=== PATIENT | female | born 1945 | race Caucasian/White ===

== ENCOUNTER → 2018-03-03 11:35 | Outpatient (CLI) | payer OTHER, SELFPAY ==
--- NOTE | 2018-03-03 12:09 | DI.CT.S_ITS ---
PROCEDURE: CT CHEST W CON INDICATIONS: Left neck and supraclavicular swelling with history of br ca TECHNIQUE: After the administration of intravenous contrast, 5 mm thick sections acquired from the pulmonary apices to the posterior costophrenic angles. 7 mm thick coronal and sagittal MIP reformats were acquired. For radiation dose reduction, the following was used: automated exposure control, adjustment of mA and/or kV according to patient size. COMPARISON: None. FINDINGS: Image quality: Excellent. Lungs and pleura: No acute consolidation. 3 mm groundglass nodules in the left upper lobe on image 20 may be postinflammatory. There is a 3 mm nodule seen in the subpleural right middle lobe which is indeterminate in the absence of prior studies. Posterior right lower lobe blebs are seen.. No pleural effusions or pneumothorax. Central and peripheral airways are patent and normal in caliber. Mediastinum: Heart size is normal. There are coronary artery calcifications. No pericardial effusion. No mediastinal or hilar adenopathy by size criteria. Thoracic aorta and central pulmonary arteries are normal in size. Esophagus is normal in caliber. No hiatal hernia. Bones and chest wall: No suspicious bony lesions. No vertebral body compression fractures. No axillary or supraclavicular adenopathy by size criteria. Possible sub-5 mm hypodense nodule in the right lobe the thyroid image 21 series 2 which could be further evaluated with ultrasound as clinically warranted. Abdomen: Hepatic steatosis. Small hiatal hernia. IMPRESSION: No lymphadenopathy or specific visualized etiology for clinically reported left-sided neck swelling. Hepatic steatosis. Small hiatal hernia. 3 mm nodule in the subpleural right middle lobe. Recommend initial followup in 6 months to exclude early metastatic disease. Possible sub-5 mm nodule involving the right lobe of the thyroid. Further evaluation with ultrasound could be performed as clinically warranted. Dictated by: Nickolas Suazo M.D. on 03/03/2018 at 14:31 Approved by: Nickolas Suazo M.D. on 03/03/2018 at 14:39
== END ==
PROVIDERS: Visit Provider Surgery
DX: R22.1 Localized swelling, mass and lump, neck (principal); Z85.3 Personal history of malignant neoplasm of breast
CPT/HCPCS: 71260; Q9967

== ENCOUNTER → 2018-10-17 12:32 | Outpatient (CLI) | payer OTHER, SELFPAY ==
--- NOTE | 2018-10-17 13:42 | DI.CT.S_ITS ---
PROCEDURE: CT CHEST W CON INDICATIONS: 6 month f/u TECHNIQUE: After the administration of intravenous contrast, 5 mm thick sections acquired from the pulmonary apices to the posterior costophrenic angles. 7 mm thick coronal and sagittal MIP reformats were acquired. For radiation dose reduction, the following was used: automated exposure control, adjustment of mA and/or kV according to patient size. COMPARISON: [facility], CT, CT CHEST W CON, 03/03/2018, 12:10. FINDINGS: Image quality: Excellent. Lungs and pleura: No acute air space opacities. A 4 mm calcified granuloma is present within the right lower lobe (series 2, image 122). A 4 mm pulmonary nodule is present within the right middle lobe unchanged in the study dated 03/03/18 (series 2, image 161). A 4 mm pulmonary nodule is present at the left apex unchanged from the study dated 03/03/18 (series 2, image 30). A 7 mm ground glass radiopacity is unchanged within the left upper lobe (series 2, image 59). No pleural effusions or pneumothorax. Central and peripheral airways are patent and normal in caliber. Mediastinum: Heart size is normal. No pericardial effusion. No mediastinal or hilar adenopathy by size criteria. Thoracic aorta and central pulmonary arteries are normal in size. Scattered atheromatous calcifications are present within the aortic arch. Esophagus is normal in caliber. There is a moderate sized hiatal hernia. Bones and chest wall: Patient is status post bilateral mastectomy. Bilateral low density fluid collections are present within the anterior chest wall, greater on the left than on the right. Some fat stranding surrounds the left chest wall fluid collection suggesting inflammatory changes. No suspicious bony lesions. No vertebral body compression fractures. No axillary or supraclavicular adenopathy by size criteria. Thyroid gland is unremarkable. Abdomen: The liver is diffusely hypodense suggesting hepatic steatosis. Calcified gallstones are partially visualized within the gallbladder fundus. Visualized upper abdominal solid organs appear normal. Upper abdominal bowel loops are otherwise normal in caliber. IMPRESSION: 1. Multiple pulmonary nodules measuring up to 5 mm in diameter. These are unchanged when compared with the study dated 03/03/18. Please see followup guidelines below. Followup in 6-12 months recommended. 2. 7 mm left upper lobe ground glass radiopacity unchanged from the prior study. Please see followup guidelines below. Annual followup recommended. 3. Bilateral anterior chest wall fluid collections suggesting postoperative seromas. Of note, inflammatory changes are present around the left seroma. Infected seroma cannot be excluded. Please correlate clinically. The fluid may be amenable to ultrasound-guided aspiration if fluid culture is warranted to exclude infection. 4. Hepatic steatosis. Fleischner Society criteria for SOLID lung nodule followup. Nodule size (mm)Low-risk patientHigh-risk patient?4No follow-up neededFollow-up at 12 mo; if no change, no further follow-up>[id number] CT at 12 mo; if no change, no further follow-up needed.Initial follow-up CT at 6-12 mo, then 18-24 mo if no change. >6-8Initial follow-up CT at 6-12 mo, then 18-24 mo if no change. Initial follow-up CT at 3-6 mo, then 9-12 mo and 24 mo if no change. >8Follow-up CT at 3, 9, 24 mo. Or PET and/or biopsy.Same as for low-risk pts. Fleischner Society criteria for SUB-SOLID lung nodule followup. Solitary pure ground-glass nodules5 mm or lessNo followup needed. >5 mm3 mo follow-up CT to confirm persistence. Then annual CT for 3 years. Part-solid nodules3 mo follow-up CT to confirm persistence. If persistent with solid component <5 mm, annual CT for at least 3 years. If solid component is 5 mm or more, biopsy or surgical resection. Consider PET-CT for lesions > 10 mm. Multiple sub-solid nodulesPure ground glass nodules [address] at 2 and 4 years. Pure ground glass nodules >5 mm without dominant lesion. [address] to confirm persistence, then annual followup CT for at least 3 years. Dominant nodule(s) with part-solid or solid component. [address] to confirm persistence. If persistent, consider biopsy or surgical resection, fredy if lesions have >5 mm solid component. Dictated by: Sophia Dodd M.D. on 10/17/2018 at 14:32 Approved by: Sophia Dodd M.D. on 10/17/2018 at 14:41
--- NOTE | 2018-10-17 13:42 | DI.CT.S_ITS ---
PROCEDURE: CT CHEST HIGH RESOLUTION INDICATIONS: lung nodules TECHNIQUE: Noncontrast 1.0 and 5.0 mm thick contiguous axial sections from the pulmonary apex to the posterior costophrenic angles, with 7 mm thick coronal and sagittal MIP reformats. 1 mm thick dynamic expiratory images acquired through the upper, mid, and lower lungs. 1.0 mm thick axial sections acquired from the flaca to the posterior costophrenic angles in the prone end-inspiration position. For radiation dose reduction, the following was used: automated exposure control, adjustment of mA and/or kV according to patient size. COMPARISON: [facility], CT, CT CHEST W CON, 03/03/2018, 12:10. [facility], CT, CT CHEST W CON, 10/17/2018, 13:46. FINDINGS: Image quality: Excellent. Lungs: Calcified granuloma is present at the mid chest level, right lower lobe, series 2 image 69. Noncalcified stable appearing pleural right middle lobe nodule is present near the junction of the lateral and medial segments seen on series 2 image 91. No new pulmonary nodule has developed. Pleura: No pleural effusions or pneumothorax. Mediastinum: Heart size is normal. No pericardial effusion. Thoracic aorta and central pulmonary arteries are normal in size. Esophagus is normal in caliber. Small to moderate hiatal hernia behind the heart. Bones and chest wall: No suspicious bony lesions. No vertebral body compression fractures. Abdomen: Visualized upper abdominal solid organs and bowel loops appear normal. IMPRESSION: Calcified granuloma right lower lobe, stable appearing 3 mm benign-appearing nodule lateral aspect of the right middle lobe. No new nodule found, no suspicion for primary or metastatic disease is present given these findings and no specific followup is recommended. Small to moderate-sized hiatal hernia behind the heart. Dictated by: Mack Ortiz M.D. on 10/17/2018 at 16:11 Approved by: Mack Ortiz M.D. on 10/17/2018 at 16:18
[2018-10-17 13:52] LABS: BUN Creatinine Ratio 12.9 (6-22); Blood Urea Nitrogen 9 mg/dL (7-17); Estimated Glomerular Filt Rate > 60.0 mL/min (>60)
== END ==
PROVIDERS: Family Provider Surgery; Visit Provider Surgery
DX: C50.919 Malignant neoplasm of unspecified site of unspecified female breast (principal); R91.8 Other nonspecific abnormal finding of lung field; M96.843 Postprocedural seroma of a musculoskeletal structure following other procedure; K76.0 Fatty (change of) liver, not elsewhere classified; K44.9 Diaphragmatic hernia without obstruction or gangrene
CPT/HCPCS: 36415; 71250; 71260; 82565; 84520; Q9967

== ENCOUNTER → 2019-04-26 12:04 | Outpatient (CLI) | payer OTHER, SELFPAY ==
--- NOTE | 2019-04-26 | DI.US.S_ITS ---
PROCEDURE: US ABDOMEN COMPLETE INDICATIONS: right upper quadrant pain right breast cancer TECHNIQUE: Real-time scanning was performed of the abdominal and retroperitoneal organs, with image documentation. COMPARISON: [facility], CT, CT CHEST HIGH RESOLUTION, 10/17/2018, 13:46. FINDINGS: Liver: Liver is diffusely increased in echogenicity. No focal hepatic abnormalities identified. Normal hepatic size. Gallbladder: Multiple gallstones present, several of which which may be nonmobile. No gallbladder wall thickening or pericholecystic fluid. Negative sonographic Reynolds sign. Biliary ducts: Intrahepatic bile ducts are non-dilated. Extrahepatic bile duct caliber measures 4.5 mm. Normal is 6-7 mm or less in diameter, or 10 mm or less post-cholecystectomy. Pancreas: Visualized portions of the pancreas are sonographically normal. Spleen: Spleen is normal in size and homogeneous in echotexture. Kidneys: Kidneys are normal in size and echotexture. Right kidney measures 11.6 cm long; left kidney measures 10.6 cm long. No hydronephrosis or nephrolithiasis. No solid masses. Aorta: Visualized aorta is normal in caliber at less than 3 cm. Iliacs: Proximal common iliac arteries are normal in caliber at less than 2.5 cm. IVC: Intrahepatic inferior vena cava is patent. Miscellaneous: No free abdominal fluid. IMPRESSION: 1. Increased hepatic echogenicity noted possibly related to hepatic steatosis but other sources of hepatocellular disease cannot be excluded. Recommend clinical correlation. 2. Cholelithiasis without acute cholecystitis. Dictated by: Aaron VIZCAINO Interpreted: Kandis Palomares MD on 04/26/2019 at 12:58 Approved by: Kandis Palomares MD, PhD on 04/26/2019 at 14:45
--- NOTE | 2019-04-26 13:04 | DI.CT.S_ITS ---
PROCEDURE: CT CHEST ABD PEL W CON INDICATIONS: right upper quadrant pain, right breast cancer TECHNIQUE: After the administration of oral and intravenous contrast, 5 mm thick sections acquired from the lung apices to the symphysis. 5 mm coronal and sagittal reformats were performed, with additional 7 mm coronal MIP reformats through the lungs. For radiation dose reduction, the following was used: automated exposure control, adjustment of mA and/or kV according to patient size. COMPARISON: [facility], CT, CT CHEST W CON, 03/03/2018, 12:10. [facility], CT, CT CHEST W CON, 10/17/2018, 13:46. FINDINGS: Image quality: Excellent. CHEST: Lungs and pleura: No acute airspace opacities. No pleural effusions or pneumothorax. Central and peripheral airways appear patent and normal in caliber. Mediastinum: Heart size is normal. No pericardial effusion. No mediastinal or hilar adenopathy by size criteria. Thoracic aorta and central pulmonary arteries are normal in size. Esophagus is normal in caliber. No hiatal hernia. Chest wall: No axillary or supraclavicular adenopathy by size criteria. Thyroid gland appears normal where well visualized. Please review of bone section below. ABDOMEN: Solid organs: Liver is normal in size and enhancement. Gallbladder is free of inflammation but contains multiple moderate sized peripherally calcified gallstones noted which appear obstructed.. Biliary system is non dilated. Pancreas enhances normally. Spleen is normal in size and enhancement. No adrenal nodules. Kidneys demonstrate normal size and enhancement, without hydronephrosis. Peritoneum and bowel: Bowel loops demonstrate normal wall thickness and caliber. No free fluid or air. Nodes and vessels: No retroperitoneal or mesenteric adenopathy by size criteria. Aorta and inferior vena cava are normal in size. Miscellaneous: No ventral hernias. Please review bone section below. PELVIS: Genitourinary: Bladder wall thickness is normal. Miscellaneous: No inguinal hernias or adenopathy. Bones: No acute or chronic vertebral body compression fractures. There is, however, relatively widespread osseous metastatic disease. At the left sternal border there is a 3.4 x 4.4 cm osteolytic mass seen on series 2 image 24. More inferiorly at the mid chest level a osteolytic lesion involves the pedicle and facet joint area and lamina of the vertebral body in this area measuring up to 1.6 x 1.8 cm with early epidural tumor invasion at the posterolateral right side of the spinal canal. This produces mild mass effect against the spinal canal and likely should be further assessed with MR scanning. A small 7 mm osteolytic lesion is seen at the posterior vertebral body on the right 2 segments more inferiorly, not previously present. This is seen on series 2 image 46. An osteolytic expansile lesion involves the medial rib just below this level, seen on series 2 image 52 a during up to 1.5 cm in maximal dimension. Just below this level involving the same region is a slightly more lateral right-sided osteolytic rib lesion measuring up to 1.2 cm in diameter, seen on series 2 image 56. More inferiorly at the lower thoracic level is a vertebral body marrow space osteolytic lesion measuring up to 1.4 cm with a second osteolytic lesion at the same level measuring up to 1.9 cm involving the left facet joint. These are seen on series 2 image 62. An additional subtle osteolytic lesions are present within a mid vertebral body not previous ously present, seen on series 2 image 78 not yet extending into the epidural space. A small osteolytic lesion involves the middle third of the left iliac bone seen on series 2 image 100 measuring up to 1.5 cm. IMPRESSION: 1. Extensive osseous metastatic disease as discussed above involving both the axial and appendicular skeleton. There is epidural tumor invasion at the mid thoracic spine level on the right, mild in severity. Additional spinal metastatic disease is present as noted. MR scanning for radiation therapy planning may be warranted. 2. Throughout the visualized chest abdomen and pelvis no visceral or soft tissue metastatic disease is found. 3. Peripherally calcified centrally lucent moderate size gallstones are present layering within the gallbladder lumen with air is no evidence of acute cholecystitis or biliary obstruction. However, these calculi may explain the clinical history of right upper quadrant pain. Dictated by: Mack Ortiz M.D. on 04/26/2019 at 14:34 Approved by: Mack Ortiz M.D. on 04/26/2019 at 14:59
== END ==
PROVIDERS: Visit Provider Family Medicine
DX: C50.911 Malignant neoplasm of unspecified site of right female breast (principal); C79.51 Secondary malignant neoplasm of bone; R10.11 Right upper quadrant pain; K80.20 Calculus of gallbladder without cholecystitis without obstruction
CPT/HCPCS: 71260; 74177; 76700; Q9967

== ENCOUNTER → 2019-05-04 14:42 | Outpatient (CLI) | payer OTHER, SELFPAY ==
--- NOTE | 2019-05-04 | DI.MRI.S_ITS ---
PROCEDURE: MR THORACIC SPINE WO/W CON INDICATIONS: METASTATIC BREAST CANCER TECHNIQUE: Noncontrast sagittal T1 spin echo and T2 fast spin echo, sagittal STIR, axial T1 and T2 fast spin echo through the thoracic spine. After the administration of contrast, axial and sagittal T1 spin echo with fat saturation through the thoracic spine. COMPARISON: [facility], MR, MR LUMBAR SPINE WO/W CON, 05/04/2019, 15:00. [facility], CT, CT CHEST ABD PEL W CON, 04/26/2019, 13:23. FINDINGS: Image quality: Excellent. Alignment and curvature: There is prominent levoconvex scoliotic curvature of the thoracic spine Marrow: Focus of hypointense signal with subtle enhancement is noted at T5. Posterior vertebral body abnormal signal enhancement is present at T8. Abnormal marrow signal and enhancement is present within the right pedicle and lamina encroaching into the posterior aspect of the spinal canal at T9-10. The area of abnormal enhancement is in near direct approximation to the spinal cord. Posterior vertebral body abnormal signal enhancement is present at T10. Abnormal signal enhancement is noted anteriorly within the vertebral body at T12. Partially visualized abnormal signal enhancement is noted within the left pedicle and spinous process at L1. No acute vertebral body compression fractures. Spinal cord: Visualized spinal cord is of normal signal and size, without abnormal enhancement. Paraspinous soft tissues: No paravertebral masses or abnormal enhancement. Trace right effusion is present. Miscellaneous: The foramina appear widely patent at all scanned levels. Multilevel disc desiccation is present. Minimal disc bulge is present at T4-5, T5-6, T6-7, T9-10 and posterior central protrusion at T12-L1. Minimal canal narrowing is present at T9-10. IMPRESSION: 1. Multiple areas of abnormal enhancement including a focus at T9-10 which extends into the posterior aspect of the spinal canal in very close approximation to the spinal cord. Overall appearance is most consistent with metastatic disease. Dictated by: Luna Mora M.D. on 05/04/2019 at 20:46 Approved by: Luna Mora M.D. on 05/04/2019 at 20:54
--- NOTE | 2019-05-04 | DI.MRI.S_ITS ---
PROCEDURE: MR LUMBAR SPINE WO/W CON INDICATIONS: METASTATIC BREAST CANCER TECHNIQUE: Noncontrast sagittal T1 spin echo and T2 fast spin echo, sagittal STIR, axial T1 and T2 fast spin echo through the lumbar spine. In cases with scoliosis, additional coronal T2 fast spin echo may be performed. After the administration of contrast, sagittal and axial T1 spin echo with fat saturation through the lumbar spine. COMPARISON: [facility], CT, CT CHEST ABD PEL W CON, 04/26/2019, 13:23. [facility], MR, MR THORACIC SPINE WO/W CON, 05/04/2019, 15:00. FINDINGS: Image quality: Diagnostic, with note made of motion artifact. Alignment and curvature: Mild levoconvex scoliotic curvature is noted. Minimal anterolisthesis is seen at the L4-L5 level. Marrow: Numerous foci of metastatic disease can be seen, which are most prominent involving the superior T12 level, the mid L1 level, the left L1 posterior elements, and the posterior L3 level. Each of these sites are demonstrates decreased T1 weighted signal with increased T2 weighted signal and abnormal enhancement. Spinal cord: Conus medullaris terminates at the L1 level. Visualized spinal cord demonstrates normal signal, without suspicious enhancement. Paraspinous soft tissues: No paravertebral masses or abnormal enhancement. T12-L1: Normal appearance. L1-L2: Normal appearance. L2-L3: The disc height is well-preserved. Loss of disc signal is seen at this level. Mild generalized disc bulge is seen. Mild facet joint hypertrophy is seen. No significant neural foraminal or central canal narrowing can be seen. L3-L4: Moderate to severe loss of disc height and disc signal are seen. Moderate disc bulge is seen, which is eccentric to the right. There is mild to moderate facet hypertrophy seen. There is mild to moderate right-sided and mild left-sided neural foraminal narrowing seen. Moderate central canal narrowing is seen. L4-L5: The disc height is well-preserved. Loss of disc signal is seen at this level. Moderate disc bulge is seen. Prominent facet hypertrophy is seen at this level. There is mild to moderate right-sided and moderate to severe left-sided neural foraminal narrowing seen. At least moderate central canal narrowing is seen. L5-S1: The disc height is well-preserved. Loss of disc signal is seen at this level. Mild generalized disc bulge is seen. Moderate facet joint hypertrophy is seen. No significant neural foraminal or central canal narrowing can be seen. IMPRESSION: Multiple sites of metastatic disease are seen. Dictated by: Lang Walls M.D. on 05/04/2019 at 16:36 Approved by: Lang Walls M.D. on 05/04/2019 at 16:41
== END ==
LOC: MRI 14:44
PROVIDERS: Visit Provider Family Medicine
DX: C50.919 Malignant neoplasm of unspecified site of unspecified female breast (principal); C79.51 Secondary malignant neoplasm of bone; C79.9 Secondary malignant neoplasm of unspecified site
CPT/HCPCS: 72157; 72158; A9579

== ENCOUNTER → 2019-09-06 13:24 | Outpatient (CLI) | payer OTHER, SELFPAY ==
--- NOTE | 2019-09-06 14:00 | DI.CT.S_ITS ---
PROCEDURE: CT CHEST ABD PEL W CON INDICATIONS: BREAST CANCER TECHNIQUE: After the administration of oral and intravenous contrast, 5 mm thick sections acquired from the lung apices to the symphysis. 5 mm coronal and sagittal reformats were performed, with additional 7 mm coronal MIP reformats through the lungs. For radiation dose reduction, the following was used: automated exposure control, adjustment of mA and/or kV according to patient size. COMPARISON: [facility], CT, CT CHEST ABD PEL W CON, 04/26/2019, 13:23. FINDINGS: Image quality: Excellent. CHEST: Lungs and pleura: No new focal consolidation identified.. No pleural effusions or pneumothorax. Scattered scarring and atelectasis is noted. There are redemonstrated bilateral subcentimeter pulmonary nodules which appear grossly stable. Central airway thickening Mediastinum: Heart size is normal. No pericardial effusion. No mediastinal or hilar adenopathy by size criteria. Thoracic aorta and central pulmonary arteries are normal in size. Esophagus is normal in caliber. Small hiatal hernia. Chest wall: No axillary or supraclavicular adenopathy by size criteria. Thyroid gland negative. ABDOMEN: Solid organs: Mild hepatic steatosis. Gallbladder contains multiple gallstones without definite evidence of acute inflammation. Biliary system is non dilated. Pancreas enhances normally. Spleen is normal in size and enhancement. No adrenal nodules. Kidneys demonstrate normal size and enhancement, without hydronephrosis. Peritoneum and bowel: Bowel loops demonstrate normal wall thickness and caliber. No free fluid or air. Incidental colonic diverticulosis. Nodes and vessels: No retroperitoneal or mesenteric adenopathy by size criteria. There is mild ectasia of the abdominal aorta image 76/2 measuring 2.9 cm, unchanged Miscellaneous: No ventral hernias. PELVIS: Genitourinary: Bladder wall thickness is normal. Fat containing left inguinal hernia. No pelvic adenopathy. Bones: Innumerable osseous metastases are again noted which appear decreased in size in some locations and interval increase in sclerosis suggestive of treatment effect for example previously described lesion involving the L2 vertebral body image 67/2 demonstrates interval sclerosis. There is also possible metastasis of the L2 posterior elements demonstrating regenerated cortex and internal sclerosis is the prior study presumably treatment effect. Large sternal lesion image 27 series 2 demonstrates less lytic appearance and increased sclerosis, and decreased size IMPRESSION: Interval sclerosis and decrease in size of numerous osseous metastases presumably treatment effect. Elsewhere, no active or progressive metastatic disease seen. Stable appearance of multiple bilateral subcentimeter pulmonary nodules. Mild hepatic steatosis Cholelithiasis Colonic diverticulosis Additional chronic and incidental findings as above. Dictated by: Nickolas Suazo M.D. on 09/06/2019 at 16:58 Approved by: Nickolas Suazo M.D. on 09/06/2019 at 17:17
== END ==
PROVIDERS: PCP Family Medicine; Visit Provider Family Medicine
DX: C50.919 Malignant neoplasm of unspecified site of unspecified female breast (principal); C79.51 Secondary malignant neoplasm of bone; R07.89 Other chest pain; R91.8 Other nonspecific abnormal finding of lung field; K57.90 Diverticulosis of intestine, part unspecified, without perforation or abscess without bleeding; K80.20 Calculus of gallbladder without cholecystitis without obstruction; K76.0 Fatty (change of) liver, not elsewhere classified
CPT/HCPCS: 71260; 74177; Q9967

== ENCOUNTER → 2019-09-22 12:58 | Outpatient (CLI) | payer OTHER, SELFPAY ==
--- NOTE | 2019-09-22 | DI.NM.S_ITS ---
PROCEDURE: [place] BONE SCAN WHOLE BODY RADIOPHARMACEUTICAL: 17.8 mCi Tc-99m MDP IV. INDICATIONS: BREAST CANCER TECHNIQUE: Delayed whole-body scintigrams were obtained approximately 3-4 hours after intravenous injection of radiotracer. Anterior and posterior views were acquired from vertex to feet. COMPARISON: [facility], MR, MR LUMBAR SPINE WO/W CON, 05/04/2019, 15:00. [facility], MR, MR THORACIC SPINE WO/W CON, 05/04/2019, 15:00. [facility], CT, CT CHEST ABD PEL W CON, 09/06/2019, 13:59. FINDINGS: There are foci of abnormal activity involving the sternum, lower thoracic spine (T9) and upper lumbar spine (L1), the right 11the rib, right greater trochanter, proximal right femoral shaft and distal left femoral shaft, consistent with metastases. There are foci of low level increased uptake in cervical, thoracic and lumbar spine with distribution indistinguishable from degenerative disc and facet disease; early metastasis to spine could be obscured by degenerative changes. There are foci of increased periarticular activity involving shoulders, right wrist, hips, SI joints, knees, left ankles and both feet, compatible with degenerative/arthritic changes. IMPRESSION: Multiple foci of abnormal uptake consistent with osseous metastases. Dictated by: Patricia Huddleston M.D. on 09/25/2019 at 9:07 Approved by: Patricia Huddleston M.D. on 09/25/2019 at 9:23
--- NOTE | 2019-09-22 13:15 | DI.MRI.S_ITS ---
PROCEDURE: MR HEAD/BRAIN WO/W CON INDICATIONS: BREAST CANCER TECHNIQUE: Noncontrast axial T1 spin echo, axial T2 fast spin echo, sagittal and axial FLAIR, coronal T2 fast spin echo, axial gradient echo, axial diffusion and ADC through the brain. After the administration of contrast, axial and coronal T1 spin echo with fat saturation through the brain. COMPARISON: [facility], MR, MR BRAIN WITH/WITHOUT CONTRAST, 05/23/2019, 15:39. FINDINGS: Image quality: Excellent. CSF spaces: Basal cisterns are patent. No extra-axial fluid collections. Ventricles are normal in size and shape. Brain: No midline shift. No intracranial bleeds or masses. No abnormal intracranial enhancement. There is cerebral volume loss for age. There is periventricular white matter chronic small vessel ischemic change. The brainstem appears normal. Diffusion-weighted images demonstrate no acute ischemic insults. No chronic ischemic insults. Normal intravascular flow voids are present. Skull and face: Calvarial marrow is normal in signal. Orbits appear normal. Sinuses: Sinuses and mastoids appear clear. IMPRESSION: Redemonstration of diffuse small white matter changes, probably represent chronic microvascular ischemic disease, versus statistically less likely demyelination or other infectious, inflammatory, neurodegenerative etiology, technically nonspecific. No interval change No evidence of acute ischemia. No acute intracranial signal abnormality or enhancement to suggest intracranial metastatic disease. Dictated by: Nickolas Suazo M.D. on 09/22/2019 at 14:22 Approved by: Nickolas Suazo M.D. on 09/22/2019 at 14:37
== END ==
PROVIDERS: PCP Family Medicine; Visit Provider Internal Medicine
DX: C79.51 Secondary malignant neoplasm of bone (principal); Z85.3 Personal history of malignant neoplasm of breast
CPT/HCPCS: 70553; 78306; A9503; A9579

== ENCOUNTER → 2020-04-19 09:32 | Outpatient (CLI) | payer OTHER, SELFPAY ==
--- NOTE | 2020-04-19 | DI.CT.S_ITS ---
PROCEDURE: CT CHEST ABD PEL W CON INDICATIONS: Secondary malignant neoplasm of bone TECHNIQUE: After the administration of oral and intravenous contrast, 5 mm thick sections acquired from the lung apices to the symphysis. 5 mm coronal and sagittal reformats were performed, with additional 7 mm coronal MIP reformats through the lungs. For radiation dose reduction, the following was used: automated exposure control, adjustment of mA and/or kV according to patient size. COMPARISON: [facility], CT, CT CHEST ABD PEL W CON, 09/06/2019, 13:59. FINDINGS: Image quality: Excellent. CHEST: Lungs and pleura: No acute airspace opacities. Patient's known bilateral subcentimeter solid and sub solid pulmonary nodules are all stable in size and appearance, series 3, images 34, 70, 138, 186, 233, 235. No new pulmonary nodule or mass is seen. Mild chronic emphysematous changes are seen. Scattered scarring/atelectasis in periphery of bilateral lung bobby are also noted and unchanged. No pleural effusions or pneumothorax. Central and peripheral airways appear patent and normal in caliber. Mediastinum: Heart size is normal. No pericardial effusion. No mediastinal or hilar adenopathy by size criteria. Thoracic aorta and central pulmonary arteries are normal in size. Esophagus is normal in caliber. No hiatal hernia. Chest wall: Surgical clips are again seen in right axilla No axillary or supraclavicular adenopathy by size criteria. Slight asymmetric prominence of right thyroid lobe with tiny 4 mm right thyroid lobe nodule is seen. ABDOMEN: Solid organs: Liver is normal in size . Hepatic steatosis is again seen. Gallbladder contains numerous stones in its dependent portion. No gallbladder wall thickening or edema.. Biliary system is non dilated. Pancreas enhances normally. Spleen is normal in size and enhancement. No adrenal nodules. Kidneys demonstrate normal size and enhancement, without hydronephrosis. Peritoneum and bowel: Bowel loops demonstrate normal wall thickness and caliber. No free fluid or air. No CT evidence of acute diverticulitis. Nodes and vessels: No retroperitoneal or mesenteric adenopathy by size criteria. Infrarenal abdominal aortic aneurysm is seen now measures up to 2.9 cm in size unchanged from prior study. Moderate atherosclerotic disease is again seen. Miscellaneous: No ventral hernias. PELVIS: Genitourinary: Bladder wall thickness is normal. Miscellaneous: No inguinal hernias or adenopathy. Bones: Innumerable osseous metastases are again seen in bony pelvis, numerous lower thoracic and lumbar spine vertebral bodies, sternum, and possibly left shoulder joint in posterior glenoid not significantly changed from prior study. Likely right posterior lower rib lesion at T10 and T11 levels also seen. No gross pathologic fracture is noted. No acute compression fracture of thoracic or lumbar spine. IMPRESSION: 1. Stable multiple bilateral subcentimeter pulmonary nodules. No new pulmonary nodule is seen. Airway is patent. 2. Stable appearing extensive bony metastatic disease not significantly changed in size and appearance from previous study. 3. Hepatic steatosis. Cholelithiasis and colonic diverticulosis not significantly changed from prior study. 4. No lymphadenopathy is seen in chest, abdomen or pelvis. 5. Stable mild aneurysmal dilatation of infrarenal abdominal aorta. Dictated by: Julio Gillette M.D. on 04/19/2020 at 12:07 Approved by: Julio Gillette M.D. on 04/19/2020 at 12:57
--- NOTE | 2020-04-19 | DI.MRI.S_ITS ---
PROCEDURE: MR THORACIC SPINE WO/W CON INDICATIONS: Secondary malignant neoplasm of bone TECHNIQUE: Noncontrast sagittal T1 spin echo and T2 fast spin echo, sagittal STIR, axial T1 and T2 fast spin echo through the thoracic spine. After the administration of contrast, axial and sagittal T1 spin echo with fat saturation through the thoracic spine. COMPARISON: [facility], MR, MR LUMBAR SPINE WO/W CON, 05/04/2019, 15:00. [facility], CT, CT CHEST ABD PEL W CON, 04/19/2020, 10:56. [facility], MR, MR THORACIC SPINE WO/W CON, 05/04/2019, 15:00. [facility], MR, MR LUMBAR SPINE WO/W CON, 04/19/2020, 12:01. [facility], MR, MR CERVICAL SPINE WO/W CON, 04/19/2020, 12:01. [facility], NM, NM BONE SCAN WHOLE BODY, 04/19/2020, 13:32. FINDINGS: Image quality: Excellent. Alignment and curvature: Accentuated thoracic kyphosis is seen. No focal AP alignment abnormality is seen. S-shaped scoliosis is seen. Marrow: Numerous foci of bony lesions are seen, with decreased T1 weighted signal with increased STIR signal and increased enhancement. These are most prominent within the T12 and L1 levels. There is also involvement of the T12 spinous process, which is best seen on series 9, image 6. No acute vertebral body compression fractures. Spinal cord: Visualized spinal cord is of normal signal and size, without abnormal enhancement. Paraspinous soft tissues: No paravertebral masses or abnormal enhancement. Miscellaneous: At the T8-T9 level, there is a central disc protrusion, as on series 11 image 7, with mild central canal narrowing and mild mass effect upon the ventral spinal cord. No significant neural foraminal narrowing is seen at this level. Milder degenerative changes are seen elsewhere. IMPRESSION: Extensive bony metastatic disease is seen, as previously demonstrated. Focal T8-T9 degenerative change. Dictated by: Lang Walls M.D. on 04/19/2020 at 14:10 Approved by: Lang Walls M.D. on 04/19/2020 at 14:16
--- NOTE | 2020-04-19 | DI.MRI.S_ITS ---
PROCEDURE: MR LUMBAR SPINE WO/W CON INDICATIONS: Secondary malignant neoplasm of bone TECHNIQUE: Noncontrast sagittal T1 spin echo and T2 fast spin echo, sagittal STIR, axial T1 and T2 fast spin echo through the lumbar spine. In cases with scoliosis, additional coronal T2 fast spin echo may be performed. After the administration of contrast, sagittal and axial T1 spin echo with fat saturation through the lumbar spine. COMPARISON: [facility], [place], MS BONE SCAN WHOLE BODY, 04/19/2020, 13:32. [facility], MR, MR THORACIC SPINE WO/W CON, 04/19/2020, 12:01. [facility], MR, MR CERVICAL SPINE WO/W CON, 04/19/2020, 12:01. [facility], CT, CT CHEST ABD PEL W CON, 04/19/2020, 10:56. [facility], [place], [place] BONE SCAN WHOLE BODY, 09/22/2019, 15:04. [facility], MR, MR LUMBAR SPINE WO/W CON, 05/04/2019, 15:00. FINDINGS: Image quality: Excellent. Alignment and curvature: There is minimal anterolisthesis seen at the L4-5 level. Marrow: No acute vertebral body compression fractures. Extensive areas of bony metastatic disease are seen, with decreased T1 weighted signal and increased STIR signal, with increased enhancement. These are most prominent involving the T12, L1, and L3 levels. There is also prominent involvement of the T12 spinous process. The posterior elements of L1 on the left are involved. The size of the posterior element lesions appear improved compared to the prior examination, yet the involvement within the vertebral bodies themselves appears more severe than in 2019. Spinal cord: Conus medullaris terminates at the T12-L1 level. Visualized spinal cord demonstrates normal signal, without suspicious enhancement. Paraspinous soft tissues: No paravertebral masses or abnormal enhancement. T12-L1: Mild loss of disc height is seen. Loss of disc signal is seen. Mild disc bulge is seen. There is a central disc extrusion, as on series 8, image 4, and on series 5, image 9 no neural foraminal narrowing is seen. Mild central canal narrowing is seen. The disc extrusion is more prominent than in 2019. L1-L2: The disc height is well-preserved. Loss of disc signal is seen at this level. No significant neural foraminal or central canal narrowing can be seen. L2-L3: The disc height is well-preserved. Loss of disc signal is seen at this level. Mild to moderate disc bulge is seen. Moderate facet joint hypertrophy is seen. There is mild to moderate left-sided and minimal right-sided neural foraminal narrowing seen. Mild to moderate central canal narrowing is seen. These imaging findings have progressed compared to the prior study. L3-L4: Moderate to severe loss of disc height and disc signal can be seen at this level. Moderate prominent disc bulge is seen, which is eccentric to the right. There is moderate bilateral neural facet hypertrophy seen, right worse than left. There is moderate right-sided and no significant left-sided neural foraminal narrowing seen. Moderate central canal narrowing is seen. When comparison is made with the prior examination, these findings are similar. L4-L5: The disc height is well-preserved. Loss of disc signal is seen at this level. Moderate disc bulge is seen, which is eccentric to the left. Moderate prominent facet hypertrophy is seen, right worse than left. There is moderate left-sided and mild right-sided neural foraminal narrowing seen. Moderate central canal narrowing is seen. When comparison is made with the prior examination, these findings are similar. L5-S1: The disc height is well-preserved. Loss of disc signal is seen at this level. Mild generalized disc bulge is seen. Moderate prominent facet hypertrophy is seen. There is mild left-sided and no right-sided neural foraminal narrowing seen. The central canal is widely patent. Mild progression compared to 2019. IMPRESSION: Extensive bony metastatic disease. Since 2019, the degree of involvement of the posterior elements appears improved, while the foci of metastatic disease within the vertebral bodies are larger in size. Degenerative changes are seen throughout, which are overall progressed compared to the prior MRI. Dictated by: Lang Walls M.D. on 04/19/2020 at 14:16 Approved by: Lang Walls M.D. on 04/19/2020 at 14:23
--- NOTE | 2020-04-19 | DI.MRI.S_ITS ---
PROCEDURE: MR CERVICAL SPINE WO/W CON INDICATIONS: Secondary malignant neoplasm of bone TECHNIQUE: Noncontrast sagittal T1 spin echo and T2 fast spin echo, sagittal STIR, foraminal oblique sagittal T2 fast spin echo, axial gradient echo or T2 fast spin echo through the cervical spine. After the administration of contrast, axial and sagittal T1 spin echo with fat saturation through the cervical spine. COMPARISON: [facility], [place], [place] BONE SCAN WHOLE BODY, 04/19/2020, 13:32. [facility], MR, MR THORACIC SPINE WO/W CON, 04/19/2020, 12:01. [facility], MR, MR LUMBAR SPINE WO/W CON, 04/19/2020, 12:01. [facility], CT, CT CHEST ABD PEL W CON, 04/19/2020, 10:56. [facility], [place], [place] BONE SCAN WHOLE BODY, 09/22/2019, 15:04. [facility], MR, MR HEAD/BRAIN WO/W CON, 09/22/2019, 13:08. FINDINGS: Image quality: Diagnostic, with note made of motion artifact. Alignment and curvature: There is mild anterolisthesis seen at the C3-C4 level. Minimal retrolisthesis is seen at C4-C5. Mild retrolisthesis is seen at C5-C6. There is overall straightening of the normal cervical lordosis. Marrow: Marrow is normal in overall signal, without suspicious enhancement. Spinal cord: Visualized spinal cord has normal size and signal. No cerebellar tonsillar herniation. No abnormal intramedullary enhancement. Paraspinous soft tissues: No paravertebral masses or suspicious enhancement. C2-3: The disc height is well-preserved. Loss of disc signal is seen at this level. Mild disc osteophyte complex is seen, with a mild central disc protrusion. There is mild right-sided and moderate left-sided facet hypertrophy seen. No significant neural foraminal or central canal narrowing can be seen. C3-4: Mild to moderate loss of disc height and disc signal can be seen. Moderate disc osteophyte complex is seen, which is eccentric to the left. Moderate prominent facet hypertrophy is seen. There is moderate to severe bilateral neural foraminal narrowing seen. At least moderate central canal narrowing is seen. There is associated mass effect upon the ventral spinal cord. C4-5: Moderate to severe loss of disc height and disc signal can be seen. Endplate irregularity is seen. Moderate prominent disc osteophyte complex is seen, which is eccentric to the right. Uncovertebral joint hypertrophy is seen at this level. Moderate facet hypertrophy is seen, right worse than left. There is moderate to severe bilateral neural foraminal narrowing seen. Moderate central canal narrowing is seen. There is associated mass effect upon the ventral spinal cord. C5-6: At least moderate loss of disc height and disc signal can be seen. Moderate disc osteophyte complex is seen, which is eccentric to the left. There is a central/left disc osteophyte protrusion seen, as on series 6, image 28. Uncovertebral joint hypertrophy is seen at this level. Moderate facet joint hypertrophy is seen. Moderate to severe bilateral neural foraminal narrowing is seen, left worse than right. Moderate to severe central canal narrowing is seen. There is associated mass effect upon the ventral spinal cord. C6-7: Moderate loss of disc height is seen. Loss of disc signal is seen. Moderate generalized disc osteophyte complex is seen. Uncovertebral joint hypertrophy is seen at this level. Mild to moderate facet hypertrophy is seen. There is at least moderate bilateral neural foraminal narrowing seen. Moderate central canal narrowing is seen. There is minimal associated mass effect upon the ventral spinal cord. C7-T1: Mild loss of disc height is seen. Loss of disc signal is seen. Moderate facet hypertrophy is seen, left worse than right. There is at least moderate left-sided and moderate right-sided neural foraminal narrowing seen. No significant central canal narrowing is seen. IMPRESSION: No teresa metastatic involvement can be seen within the cervical spine. No abnormal enhancement is seen. Advanced cervical spine degenerative changes are seen. Dictated by: Lang Walls M.D. on 04/19/2020 at 14:24 Approved by: Lang Walls M.D. on 04/19/2020 at 14:29
--- NOTE | 2020-04-19 | DI.NM.S_ITS ---
PROCEDURE: [place] BONE SCAN WHOLE BODY RADIOPHARMACEUTICAL: 21.4 mCi Tc-99m MDP IV. INDICATIONS: Breast cancer. Secondary malignant neoplasm of bone. TECHNIQUE: Delayed whole-body scintigrams were obtained approximately 3-4 hours after intravenous injection of radiotracer. Anterior and posterior views were acquired from vertex to feet. COMPARISON: [facility], [place], [place] BONE SCAN WHOLE BODY, 09/22/2019, 15:04. [facility], CT, CT CHEST ABD PEL W CON, 04/19/2020, 10:56. FINDINGS: Again noted are multiple foci of abnormal uptake involving the sternum, mid to ower thoracic spine, lumbar spine, the right 11th rib, proximal right femoral shaft and distal left femoral shaft, consistent with osseous metastases. The lesion in the right greater trochanter is no longer conspicuous. There is a lesion in the left iliac bone, which is slightly more conspicuous than the last exam. Degenerative changes are again noted. IMPRESSION: There are multiple foci of osseous metastatic disease. Overall, the bone scan appears stable although mixed interval change is noted in right greater trochanter and left iliac bone. Dictated by: Patricia Huddleston M.D. on 04/19/2020 at 16:09 Approved by: Patricia Huddleston M.D. on 04/19/2020 at 16:20
[2020-04-19 10:28] LABS: Alanine Aminotransferase 19 IU/L (<35); Albumin 4.2 g/dL (3.5-5.0); Albumin Globulin Ratio 1.4 (1.0-2.8); Alkaline Phosphatase 77 U/L (38-126); Aspartate Aminotransferase 23 IU/L (14-36); BUN Creatinine Ratio 15.6 (6-22); Bilirubin Total 0.6 mg/dL (0.2-1.3); Blood Urea Nitrogen 12 mg/dL (7-17); Calcium 9.1 mg/dL (8.4-10.2); Carbon Dioxide 33 mmol/L (22-32); Chloride 103 mmol/L (98-107); Estimated Glomerular Filt Rate > 60.0 mL/min (>60); Globulin 2.9 g/dL (1.7-4.1); Glucose 92 mg/dL (80-110); HEMOLYSIS < 15 (0-50); Potassium 4.5 mmol/L (3.4-5.1); Sodium 138 mmol/L (137-145); Total Protein 7.1 g/dL (6.3-8.2)
== END ==
PROVIDERS: PCP Family Medicine; Referring Provider Internal Medicine; Visit Provider Internal Medicine
DX: C79.51 Secondary malignant neoplasm of bone (principal); Z85.3 Personal history of malignant neoplasm of breast; R91.8 Other nonspecific abnormal finding of lung field; I71.4 Abdominal aortic aneurysm, without rupture; K76.0 Fatty (change of) liver, not elsewhere classified; K80.20 Calculus of gallbladder without cholecystitis without obstruction; K57.90 Diverticulosis of intestine, part unspecified, without perforation or abscess without bleeding; M40.204 Unspecified kyphosis, thoracic region; M51.24 Other intervertebral disc displacement, thoracic region; M48.04 Spinal stenosis, thoracic region; M47.816 Spondylosis without myelopathy or radiculopathy, lumbar region; M47.817 Spondylosis without myelopathy or radiculopathy, lumbosacral region; M47.812 Spondylosis without myelopathy or radiculopathy, cervical region; M43.12 Spondylolisthesis, cervical region
CPT/HCPCS: 36415; 71260; 72156; 72157; 72158; 74177; 78306; 80053; A9503; Q9967

== ENCOUNTER → 2021-02-03 13:06 | Outpatient (CLI) | payer OTHER, SELFPAY ==
--- NOTE | 2021-02-03 | DI.MRI.S_ITS ---
PROCEDURE: MR PELIS WO/W CON INDICATIONS: Secondary malignant neoplasm of bone TECHNIQUE: Noncontrast coronal T1 and STIR, axial T1 and T2 with fat saturation, sagittal T1 with fat saturation and STIR, axial T1 in and out of phase, and axial diffusion performed through the pelvis. After the administration of contrast, axial/sagittal/coronal T1 spin echo with fat saturation through the pelvis. COMPARISON: [facility], CT, CT CHEST ABD PEL W CON, 04/19/2020, 10:56. [facility], [place], [place] BONE SCAN WHOLE BODY, 04/19/2020, 13:32. FINDINGS: Image quality: Diagnostic. Bones: Multiple T1 hypointense and T2 hyperintense enhancing intraosseous lesions are demonstrated within the visualized osseous structures. These include an oval lesion in the right ilium measuring up to 1.6 x 1.6 x 1.7 cm as seen on series 14, image 13 and series 12, image 11 corresponding to a lytic lesions seen on the prior CT. Within the left iliac wing and posterior left ilium, there are additional oval T1 hypointense and T2 hyperintense enhancing lesions measuring up to 2.7 x 0.7 cm and 2.5 x 1.8 cm in transverse dimension as seen on series 14, image 21. A [employer] lesion in the superior left acetabular rim measures up to 2.0 x 1.9 x 1.9 cm a seed on series 7, image 26 and series 12, image 18. There are bilateral small oval T2 hyperintense enhancing lesions along the pubic symphysis, measuring up to 0.8 x 0.6 cm in transverse dimension on series 7, image 39. These appear similar to slightly decreased in size compared to the prior CT given differences in technique. No discrete mass lesions demonstrated within the femoral necks. No hip joint effusions. Soft tissues: No discrete soft tissue masses are visualized. The scanned muscles demonstrate normal overall bulk and internal signal. No intraperitoneal free fluid within the visualized pelvis. There is colonic diverticulosis noted. The bladder demonstrates normal wall thickness. IMPRESSION: 1. Multiple intraosseous mass lesions redemonstrated consistent with metastatic disease. These appear similar to slightly decreased in size compared to the prior CT given differences in technique. 2. No definite new metastatic bony lesions identified. 3. No abnormal mass lesions in the femoral necks. Dictated by: Danie Herrmann M.D. on 02/03/2021 at 16:03 Approved by: Danie Herrmann M.D. on 02/03/2021 at 16:35
--- NOTE | 2021-02-03 | DI.MRI.S_ITS ---
PROCEDURE: MR LUMBAR SPINE WO/W CON INDICATIONS: Secondary malignant neoplasm of bone TECHNIQUE: Noncontrast sagittal T1 spin echo and T2 fast spin echo, sagittal STIR, axial T1 and T2 fast spin echo through the lumbar spine. In cases with scoliosis, additional coronal T2 fast spin echo may be performed. After the administration of contrast, sagittal and axial T1 spin echo with fat saturation through the lumbar spine. COMPARISON: [facility], MR, MR LUMBAR SPINE WO/W CON, 04/19/2020, 12:01. [facility], MR, MR THORACIC SPINE WO/W CON, 02/03/2021, 13:17. [facility], [place], [place] BONE SCAN WHOLE BODY, 04/19/2020, 13:32. [facility], CT, CT CHEST ABD PEL W CON, 04/19/2020, 10:56. [facility], MR, MR LUMBAR SPINE WITH/WITHOUT CONTRAST, 11/16/2019, 13:52. [facility], , MR LUMBAR SPINE WO/W CON, 05/04/2019, 15:00. FINDINGS: Image quality: This examination is limited by involuntary motion artifact. Alignment and curvature: There is minimal anterolisthesis seen at the L4-L5 level. Mild levoconvex scoliotic curvature is noted. Marrow: Several areas of abnormal marrow signal are seen, which are most prominent involving the T12, L1, and the posterior L3 levels. The spinous process of T12 is involved. The posterior elements on the left at L1 are involved. The left S1 segment is involved. The right iliac bone medially is involved. The abnormal signal includes decreased T1 weighted signal with increased T2 weighted signal and increased enhancement. The conspicuity of the lesions is decreased compared to the 04/19/2020 examination. No definite new lesions can be seen. Spinal cord: Conus medullaris terminates at the L1 level. Visualized spinal cord demonstrates normal signal, without suspicious enhancement. Paraspinous soft tissues: No paravertebral masses or abnormal enhancement. T12-L1: There is a central disc extrusion seen, with moderate central canal narrowing. The disc extrusion is slightly increased in size compared to the prior examination. No neural foraminal narrowing is seen. L1-L2: The disc height is well-preserved. Loss of disc signal is seen at this level. Mild to moderate facet hypertrophy is seen. No significant neural foraminal or central canal narrowing can be seen. Stable from the prior study. L2-L3: The disc height is well-preserved. Loss of disc signal is seen at this level. Mild to moderate disc osteophyte complex is seen. There is at least moderate facet hypertrophy seen at this level. Mild bilateral neural foraminal narrowing is seen. Mild to moderate central canal narrowing is seen. When comparison is made with the prior examination, these findings are similar. L3-L4: There is at least moderate loss of disc height and disc signal seen on the right side. Moderate disc bulge is seen. There is a central/left disc extrusion, with inferior migration of the disc material. Moderate facet joint hypertrophy is seen. There is at least moderate right-sided and no significant left-sided neural foraminal narrowing seen. Moderate central canal narrowing is seen. The disc extrusion is increased in size compared to the prior examination. L4-L5: The disc height is well-preserved. Loss of disc signal is seen at this level. Mild to moderate disc bulge is seen. There is at least moderate facet hypertrophy seen at this level. There is moderate left-sided and no significant right-sided neural foraminal narrowing seen. Moderate central canal narrowing is seen. When comparison is made with the prior examination, these findings are similar. L5-S1: The disc height is well-preserved. Loss of disc signal is seen at this level. A mild degree of generalized disc osteophyte complex is seen. Moderate facet joint hypertrophy is seen. No significant neural foraminal or central canal narrowing can be seen. When comparison is made with the prior examination, these findings are similar. IMPRESSION: Improved appearance of the patient's known metastatic disease. Worsened disc extrusions since the 2019 MRI examination at T12-L1 and at L3-L4. Dictated by: Lang Walls M.D. on 02/03/2021 at 14:17 Approved by: Lang Walls M.D. on 02/03/2021 at 14:24
--- NOTE | 2021-02-03 | DI.MRI.S_ITS ---
PROCEDURE: MR THORACIC SPINE WO/W CON INDICATIONS: Secondary malignant neoplasm of bone TECHNIQUE: Noncontrast sagittal T1 spin echo and T2 fast spin echo, sagittal STIR, axial T1 and T2 fast spin echo through the thoracic spine. After the administration of contrast, axial and sagittal T1 spin echo with fat saturation through the thoracic spine. COMPARISON: [facility], MR, MR THORACIC SPINE WO/W CON, 04/19/2020, 12:01. [facility], [place], [place] BONE SCAN WHOLE BODY, 04/19/2020, 13:32. [facility], MR, MR LUMBAR SPINE WO/W CON, 02/03/2021, 13:49. [facility], MR, MR THORACIC SPINE WO/W CON, 05/04/2019, 15:00. FINDINGS: Image quality: Excellent. Alignment and curvature: There is S shaped scoliosis, with the primary curvature a levoconvex upper thoracic curvature. Accentuated thoracic kyphosis is seen. Marrow: Several foci of abnormal marrow signal can be seen with decreased T1 weighted signal and increased STIR signal, with mild increased enhancement. The most prominent of these can be seen within the T12 and L1 vertebral bodies. The T12 spinous process is involved. When compared to the prior examination, these lesions are smaller and less conspicuous. No definite new lesions can be seen. No acute vertebral body compression fractures. Spinal cord: Visualized spinal cord is of normal signal and size, without abnormal enhancement. Mild prominence of the central canal can be seen distally, which is similar to the prior. Paraspinous soft tissues: No paravertebral masses or abnormal enhancement. Miscellaneous: At T8-T9, there is a central disc protrusion seen, with minimal central canal narrowing and mild mass effect upon the ventral spinal cord. At T12-L1, there is a central disc extrusion seen, which is slightly more prominent on the current study than on the prior. Gbgf-ne-[id number] central canal narrowing is seen. Milder degenerative changes are seen elsewhere. IMPRESSION: Numerous foci of bony metastatic disease are seen, which are improved compared to the prior MRI. Focal T8-T9 and T12-L1 degenerative changes. The degenerative changes at T12-L1 have progressed compared to the prior. S shaped scoliosis is seen. Dictated by: Lang Walls M.D. on 02/03/2021 at 14:12 Approved by: Lang Walls M.D. on 02/03/2021 at 14:16
== END ==
PROVIDERS: PCP Family Medicine; Referring Provider Internal Medicine; Visit Provider Internal Medicine
DX: C79.51 Secondary malignant neoplasm of bone (principal); C50.411 Malignant neoplasm of upper-outer quadrant of right female breast; C79.52 Secondary malignant neoplasm of bone marrow; M47.814 Spondylosis without myelopathy or radiculopathy, thoracic region; M47.815 Spondylosis without myelopathy or radiculopathy, thoracolumbar region; M51.26 Other intervertebral disc displacement, lumbar region; M51.25 Other intervertebral disc displacement, thoracolumbar region; M41.9 Scoliosis, unspecified; Z17.0 Estrogen receptor positive status [ER+]
CPT/HCPCS: 72157; 72158; 72197; A9579

== ENCOUNTER 2021-04-12 17:08 | Observation (INO) | payer OTHER, SELFPAY ==
[2021-04-12] VITALS (12 sets, daily range): BP systolic 136–171; BP diastolic 60–91; PULSE 71–77; RESP 17–20; TEMP 35.8–36.9; O2SAT 95–99; BMI 32.5
--- NOTE | 2021-04-12 | DI.RAD.S_ITS ---
PROCEDURE: XR CHEST 1V INDICATIONS: CENTRAL LINE PLACEMENT TECHNIQUE: One view of the chest was acquired. COMPARISON: [facility], CT, CT CHEST ABD PEL W CON, 04/19/2020, 10:56. FINDINGS: Surgical changes and devices: Right IJ central venous line with the catheter tip projecting near the lower 3rd of the SVC. Bilateral breast clips. Lungs and pleura: Lungs are clear. No pleural effusions or pneumothorax. Mediastinum: Mediastinal contours appear normal. Heart size is enlarged. Bones and chest wall: No suspicious bony lesions. Overlying soft tissues appear unremarkable. IMPRESSION: Right IJ central venous line with the catheter tip projecting near the lower 3rd of the SVC. Dictated by: Bertram Lee M.D. on 04/12/2021 at 18:24 Approved by: Bertram Lee M.D. on 04/12/2021 at 18:25
--- NOTE | 2021-04-12 17:09 | DI.CT.S_ITS ---
PROCEDURE: CT ANGIO HEAD AND NECK INDICATIONS: right leg weakness TECHNIQUE: After the administration of intravenous contrast, 1 mm thick sections acquired from the aortic arch through the [place]. Post-contrast 4.5 mm thick sections then re-acquired from the foramen magnum to the vertex. 3-dimensional hfycbhd-ourdwnudh-tkdyliyxdw (MIP) and/or volume rendering reformats were acquired of the central intracranial vasculature and neck separately. COMPARISON: [facility], CT, CT STROKE, 04/12/2021, 17:12. FINDINGS: Image quality: Excellent. HEAD CT ANGIOGRAPHY: Anterior circulation: Intracranial internal carotid arteries are normal in size and flow. The flow within the paired anterior cerebral arteries is normal and symmetric. The flow within the middle cerebral arteries is normal and symmetric. The anterior communicating artery is seen. No aneurysms are seen. Posterior circulation: Left vertebral artery is slightly dominant. Visualized portions of the vertebral arteries demonstrate normal caliber, and join to form a normal appearing basilar artery. Flow in the left HEEL DIPPER is predominantly originating from the MCA through posterior communicating artery. No aneurysms are seen. NECK CT ANGIOGRAPHY: Carotid system: The left common carotid artery originates off of the brachiocephalic artery. The origins of the common carotid arteries appear patent. The common carotid arteries demonstrate normal caliber and courses. There is calcified plaque in the carotid arteries. There is extensive plaque at the carotid bulbs. There is greater than 50% stenosis in the left ICA and approximately 50% stenosis in the right RAMANA. The internal carotid arteries demonstrate normal calibers and courses. Right IJ central venous line. Posterior circulation: The origins of the vertebral arteries both appear widely patent. The more superior extracranial portions of both vertebral arteries also demonstrate normal courses and calibers. They join to form a normal appearing basilar artery. Soft tissues: Visualized neck soft tissues demonstrate no suspicious abnormalities. Bones: No suspicious bony lesions. Severe degenerative change in the cervical spine. Scoliosis. Visualized cervical spine appears normally aligned. IMPRESSION: 1. No large vessel occlusion. 2. Greater than 50% stenosis in the left ICA. Approximately 50% stenosis in the right ICA. Consider carotid ultrasound for further classification. Dense calcified plaque. 3. Variant left HEEL DIPPER origin. Variant origin of the left common carotid artery Any quantitative measurements of stenosis were performed using NASCET criteria. Dictated by: Bertram Lee M.D. on 04/12/2021 at 18:47 Approved by: Bertram Lee M.D. on 04/12/2021 at 18:59
--- NOTE | 2021-04-12 17:09 | DI.CT.S_ITS ---
PROCEDURE: CT STROKE INDICATIONS: right leg weakness TECHNIQUE: Noncontrast 4.5 mm thick angled axial sections acquired from the foramen magnum to the vertex, with coronal reformats. For radiation dose reduction, the following was used: automated exposure control, adjustment of mA and/or kV according to patient size. COMPARISON: [facility], MR, MR HEAD/BRAIN WO/W CON, 09/22/2019, 13:08. FINDINGS: Image quality: Excellent. CSF spaces: Basal cisterns are patent. No extra-axial fluid collections. Ventricles are normal in size and shape. Brain: No midline shift. No intracranial masses or hemorrhage. Focal increased density in the region of the left MCA, (3/14). No area of hypodensity in a large vascular distribution to suggest acute infarction. Periventricular hypodensity consistent with chronic microvascular ischemic change. Age-related parenchymal loss. Skull and face: Calvarium and visualized facial bones are intact, without suspicious lesions. Sinuses: Visualized sinuses and mastoids are clear. IMPRESSION: 1. No acute intracranial hemorrhage. 2. Focal increased density in the region of the left MCA. This could potentially represent an intra-arterial thrombus. Comment: Findings were discussed with Eduarda Corral at 5:31 p.m. This study fulfills neurological imaging criteria for inclusion or exclusion of acute stroke therapies based on available published neurological imaging guidelines. Dictated by: Bertram Lee M.D. on 04/12/2021 at 17:27 Approved by: Bertram Lee M.D. on 04/12/2021 at 17:32
[2021-04-12 18:08] LABS: Add Manual Diff / Slide Review NO; Basophils Absolute Auto 0 /uL (0-100); Basophils Percent Auto 0.5 % (0-2); Eosinophils Absolute Auto 0 /uL (0-450); Eosinophils Percent Auto 1.1 % (2-4); Hematocrit 38.4 % (36-46); Hemoglobin 12.8 g/dL (12.0-16.0); Lymphocytes Absolute Auto 1000 /uL (1100-4500); Lymphocytes Percent Auto 24.8 % (25-40); Mean Corpuscular HGB Conc 33.4 % (30-36); Mean Corpuscular Hemoglobin 32.6 PG (26-34); Mean Corpuscular Volume 97.7 fL (80-100); Monocytes Absolute Auto 400 /uL (0-900); Monocytes Percent Auto 8.6 % (3-14); Neutrophils Absolute Auto 2700 /uL (1500-7000); Red Blood Cell Count 3.93 X10^6/uL (4.0-5.2); Red Cell Distribution Width 13.3 % (11.6-14.8); White Blood Cell Count 4.1 X10^3/uL (4.5-11.0)
[2021-04-12 18:19] LABS: Troponin I < 0.012 ng/mL (0.01-0.034)
--- NOTE | 2021-04-12 18:23 | ED.NEUROSD ---
HPI - Neuro Symptoms/Deficit General Chief Complaint: Altered Mental Status Stated Complaint: Stroke - symptoms now resloved Time Seen by Provider: 04/12/21 17:21 Source: patient, family and EMS Mode of arrival: EMS Limitations: altered mental status History of Present Illness HPI Narrative: Patient is a 75-year-old female with history of hypertension had 2 prior TIAs presenting today as code stroke with new right-sided weakness. Her best last known well seems to be 401 when she texted her daughter. Patient says that her head got very heavy she fell to the floor and could not get up because of her right-sided weakness. At that point she says she was able to text her daughter who then called 911. Daughter states that she has some slurring and slow to respond at baseline and occasionally has some aphasia from her prior TIAs/possibly strokes, however today her speech was unintelligible when she tried to speak to her. Now in the emergency department we are able to understand her. She says she sometimes mixes up no and yes which is baseline for her daughter confirms. Strength in her right side seems to be improving as well. She has no chest pain palpitations or shortness of breath. On Anticoagulants: No Related Data Home Medications Medication Instructions Recorded Confirmed citalopram 40 mg tablet 20 mg PO DAILY 02/28/18 11/15/18 aripiprazole 5 mg tablet 5 mg DAILY 04/12/21 04/12/21 citalopram 40 mg tablet 40 mg DAILY 04/12/21 04/12/21 Previous Rx's Medication Instructions Recorded oxycodone-acetaminophen 5 mg-325 1 tab PO Q6H PRN #30 tab 02/28/18 mg tablet (Endocet) tizanidine 2 mg tablet 2 mg PO Q8H PRN #60 tab MDD 3 03/07/18 Allergies Allergy/AdvReac Type Severity Reaction Status Date / Time acetaminophen [From Percocet] AdvReac Verified 03/07/18 14:34 aspirin [From Percodan] AdvReac Verified 03/07/18 14:34 oxycodone [From Percocet] AdvReac Verified 03/07/18 14:34 Review of Systems Review of Systems Narrative: GENERAL: Denies chills, fatigue, malaise, fever, sweats, travel HEENT: Denies sinus pain, ear pain, sore throat, difficulty swallowing, neck pain RESPIRATORY: Denies dyspnea, cough, wheezing, hemoptysis, sputum. CARDIOVASCULAR: Denies chest pain, palpitations, orthopnea, edema GASTROINTESTINAL: Denies nausea, vomiting, abdominal pain, diarrhea, constipation, melena. : Denies dysuria, frequency, incontinence, hematuria, urinary retention, flank pain. MUSCULOSKELETAL: Denies weakness, joint pain, or bony pain SKIN: No rash, no erythema, no pruritus NEUROLOGIC: See HPI PSYCHIATRIC: No concerning psychosocial issues. 12 point review of systems is negative except for those stated above and HPI Hematologic/Lymphatic On Anticoagulants: No Patient History Medical History Depression Fatigue HTN (hypertension) Seasonal allergies Surgical History Status post mastectomy Family History Father Hypertension Family/Other Cancer Mother Stroke Grandmother Diabetes mellitus Social History Smoking Status: Never smoker alcohol intake: current substance use type: marijuana Smoking Status: Never smoker Exam Initial Vital Signs Initial Vital Signs: Vital Signs Temperature 98.5 F 04/12/21 17:15 Pulse Rate 74 04/12/21 17:15 Respiratory Rate 18 04/12/21 17:15 Blood Pressure 136/60 04/12/21 17:15 Pulse Oximetry 96 04/12/21 17:15 GENERAL: Alert 75-year-old female HEENT: Head atraumatic,EOMI, pupils reactive, face symmetric, moist mucous membranes CARDIOVASCULAR: Regular rate and rhythm without murmurs, rubs or gallops. RESPIRATORY: Breath sounds equal bilaterally, no wheezes rales or rhonchi. ABDOMEN: Soft, nontender. Normoactive bowel sounds all 4 quadrants. No guarding or rebound. EXTREMITIES: Normal range of motion, no clubbing or edema. Neurovascularly intact NEUROLOGICAL: Alert and oriented x4 mild dysarthria and dysphagia no facial droop. Right leg drift. No ataxia. SKIN: Warm, dry, no laceration, no petechiae, no rashes or lesions. Procedures Central Line Placement Right IJ: Patient Placed on Monitor/Pulse Ox: Yes MD Prep: mask, gown and gloves Central Line Prep: Chlorhexidine scrub Local Anesthetic: lidocaine 1% Amount of anesthesia used (mL): 5 Ultrasound Used for Placement: Yes Central Line Lumen Inserted: triple Post Procedure: sutured in place Patient Tolerated Procedure: Well Scores NIH Stroke Scale Level of Conciousness: Alert, keenly responsive Ask month/age: Answers both questions correctly. Open/close eyes, close hand: Performs both tasks correctly Best gaze horizontal: Normal Visual bobby: No visual loss Facial palsy: Normal symetrical movement Left arm drift: No drift for full 10 sec Right arm drift: No drift for full 10 sec Left leg drift: No drift for full 5 sec Right leg drift: Drifts down, not to bed Limb ataxia: Absent Sensory on face/arms/legs: Normal, no sensory loss Best language: Mild to moderate, slurs some words Dysarthria: Mild to mod,some slurring Extinction or inattention: No abnormality Total NIH Stroke scale score: 3 Course Orders Ordered: ED Orders 04/12/21 17:[address] angio head and neck Stat 04/12/21 17:10 EKG-12 Lead Stat 04/12/21 17:53 Complete Blood Count AUTO DIFF Stat 04/12/21 18:08 Comprehensive Metabolic Panel Stat Partial Thromboplastin Time Stat Prothrombin Time INR Stat Troponin & CK Cardiac Panel Stat 04/12/21 18:34 Urine Drug Screen, Rapid Stat 04/12/21 19:09 COVID19 - ADMIT (VISITOR SERVICE ASSISTANT swab/PCR) Stat Sodium Chloride (Normal Saline 0.9%) 1,000 mls @ 150 mls/hr IV CONT WALE Last Admin: 04/12/21 19:04 Dose: 150 mls/hr Documented by: JAZZY Discontinued Medications Aspirin (Aspirin 81 Mg Chew Tab) 324 mg PO NOW ONE Stop: 04/12/21 19:24 Last Admin: 04/12/21 19:38 Dose: 324 mg Documented by: KGHILARIO Vital Signs Vital signs: Vital Signs - 8 hr 04/12/21 17:15 04/12/21 17:38 04/12/21 17:39 Temperature 98.5 F Pulse Rate 74 73 74 Respiratory Rate 18 Blood Pressure 136/60 147/70 H Pulse Oximetry 96 96 96 04/12/21 18:00 04/12/21 18:09 04/12/21 18:38 Temperature Pulse Rate 75 71 77 Respiratory Rate 17 20 18 Blood Pressure 150/66 H Pulse Oximetry 96 97 95 04/12/21 18:40 04/12/21 19:00 04/12/21 19:01 Temperature Pulse Rate 76 71 71 Respiratory Rate 19 19 20 Blood Pressure 166/76 H 171/74 H Pulse Oximetry 98 98 97 04/12/21 19:30 04/12/21 19:31 Temperature Pulse Rate 71 Respiratory Rate 20 Blood Pressure 150/65 H Pulse Oximetry MDM - Neuro Symptoms/Deficit Lab Data Result diagrams: 04/12/21 17:53 04/12/21 18:08 Labs: Lab Results 04/12/21 04/12/21 04/12/21 Range/Units 17:53 18:08 18:08 WBC 4.1 L (4.5-11.0) X10^3/uL RBC 3.93 L (4.0-5.2) X10^6/uL Hgb 12.8 (12.0-16.0) g/dL Hct 38.4 (36-46) % MCV 97.7 (80-100) fL MCH 32.6 (26-34) PG MCHC 33.4 (30-36) % RDW 13.3 (11.6-14.8) % Plt Count 178 (150-400) X10^3/uL Neut % (Auto) 65.0 (50-75) % Lymph % (Auto) 24.8 L (25-40) % [place] % (Auto) 8.6 (3-14) % Eos % (Auto) 1.1 L (2-4) % Baso % (Auto) 0.5 (0-2) % Neut # (Auto) 2700 (5344-6356) /uL Lymph # (Auto) 1000 L (8625-8683) /uL [place] # (Auto) 400 (0-900) /uL Eos # (Auto) 0 (0-450) /uL Baso # (Auto) 0 (0-100) /uL PT 11.4 (10.1-12.7) SECONDS INR 1.0 (0.9-1.3) APTT 30 (26.4-36.2) SECONDS Sodium 139 (137-145) mmol/L Potassium 3.8 (3.4-5.1) mmol/L Chloride 107 (98-107) mmol/L Carbon Dioxide 29 (22-32) mmol/L BUN 14 (7-17) mg/dL Creatinine 0.79 (0.52-1.04) mg/dL Estimated GFR > 60.0 (>60) mL/min BUN/Creatinine Ratio 17.7 (6-22) Glucose 116 H (80-110) mg/dL Calcium 9.2 (8.4-10.2) mg/dL Total Bilirubin 0.2 (0.2-1.3) mg/dL AST 24 (14-36) IU/L ALT 11 (<35) IU/L Alkaline Phosphatase 48 (38-126) U/L Total Creatine Kinase 32 (30-135) U/L CK-MB (CK-2) TNP CK-MB (CK-2) Rel Index TNP Troponin I < 0.012 (0.01-0.034) ng/mL Total Protein 6.0 L (6.3-8.2) g/dL Albumin 3.5 (3.5-5.0) g/dL Globulin 2.5 (1.7-4.1) g/dL Albumin/Globulin Ratio 1.4 (1.0-2.8) U Opiates 300ng/mL cut (Negative) Ur Oxycodone Screen (Negative) Urine Methadone Screen (Negative) Ur Barbiturates Screen (Negative) U Tricyclic Antidepress (Negative) Ur Phencyclidine Scrn (Negative) Ur Amphetamines Screen (Negative) U Methamphetamines Scrn (Negative) Ur MDMA Scrn (Ecstasy) (Negative) U Benzodiazepines Scrn (Negative) Urine Cocaine Screen (Negative) U Marijuana (THC) Screen (Negative) 04/12/21 Range/Units 18:34 WBC (4.5-11.0) X10^3/uL RBC (4.0-5.2) X10^6/uL Hgb (12.0-16.0) g/dL Hct (36-46) % MCV (80-100) fL MCH (26-34) PG MCHC (30-36) % RDW (11.6-14.8) % Plt Count (150-400) X10^3/uL Neut % (Auto) (50-75) % Lymph % (Auto) (25-40) % [place] % (Auto) (3-14) % Eos % (Auto) (2-4) % Baso % (Auto) (0-2) % Neut # (Auto) (0670-7928) /uL Lymph # (Auto) (5997-8743) /uL [place] # (Auto) (0-900) /uL Eos # (Auto) (0-450) /uL Baso # (Auto) (0-100) /uL PT (10.1-12.7) SECONDS INR (0.9-1.3) APTT (26.4-36.2) SECONDS Sodium (137-145) mmol/L Potassium (3.4-5.1) mmol/L Chloride (98-107) mmol/L Carbon Dioxide (22-32) mmol/L BUN (7-17) mg/dL Creatinine (0.52-1.04) mg/dL Estimated GFR (>60) mL/min BUN/Creatinine Ratio (6-22) Glucose (80-110) mg/dL Calcium (8.4-10.2) mg/dL Total Bilirubin (0.2-1.3) mg/dL AST (14-36) IU/L ALT (<35) IU/L Alkaline Phosphatase (38-126) U/L Total Creatine Kinase (30-135) U/L CK-MB (CK-2) CK-MB (CK-2) Rel Index Troponin I (0.01-0.034) ng/mL Total Protein (6.3-8.2) g/dL Albumin (3.5-5.0) g/dL Globulin (1.7-4.1) g/dL Albumin/Globulin Ratio (1.0-2.8) U Opiates 300ng/mL cut Negative (Negative) Ur Oxycodone Screen Positive H (Negative) Urine Methadone Screen Negative (Negative) Ur Barbiturates Screen Negative (Negative) U Tricyclic Antidepress Negative (Negative) Ur Phencyclidine Scrn Negative (Negative) Ur Amphetamines Screen Negative (Negative) U Methamphetamines Scrn Negative (Negative) Ur MDMA Scrn (Ecstasy) Negative (Negative) U Benzodiazepines Scrn Negative (Negative) Urine Cocaine Screen Negative (Negative) U Marijuana (THC) Screen Positive H (Negative) Point of Care Testing Glucose POC 90 Urine Dip Bedside Urine Glucose Negative Bedside Urine Bilirubin - Negative Bedside Urine Ketone - Negative Urine Specific [place] 1.010 Bedside Urine Occult Blood - Negative Bedside Urine pH 6 Bedside Urine Protein - Negative Bedside Urine Urobilinogen - Negative Bedside Urine Nitrite - Negative Bedside Urine Leukocytes - Negative Esterase Imaging Data CT scan - head: Radiologist's Impression: PROCEDURE: CT STROKE INDICATIONS: right leg weakness TECHNIQUE: Noncontrast 4.5 mm thick angled axial sections acquired from the foramen magnum to the vertex, with coronal reformats. For radiation dose reduction, the following was used: automated exposure control, adjustment of mA and/or kV according to patient size. COMPARISON: [facility], MR, MR HEAD/BRAIN WO/W CON, 09/22/2019, 13:08. FINDINGS: Image quality: Excellent. CSF spaces: Basal cisterns are patent. No extra-axial fluid collections. Ventricles are normal in size and shape. Brain: No midline shift. No intracranial masses or hemorrhage. Focal increased density in the region of the left MCA, (3/14). No area of hypodensity in a large vascular distribution to suggest acute infarction. Periventricular hypodensity consistent with chronic microvascular ischemic change. Age-related parenchymal loss. Skull and face: Calvarium and visualized facial bones are intact, without suspicious lesions. Sinuses: Visualized sinuses and mastoids are clear. IMPRESSION: 1. No acute intracranial hemorrhage. 2. Focal increased density in the region of the left MCA. This could potentially represent an intra-arterial thrombus. Comment: Findings were discussed with Eduarda Corral at 5:31 p.m. This study fulfills neurological imaging criteria for inclusion or exclusion of acute stroke therapies based on available published neurological imaging guidelines. Dictated by: Bertram Lay M.D. on 04/12/2021 at 17:27 Approved by: Bertram Lay M.D. on 04/12/2021 at 17:32 ECG Data Interpretation: Sinus rhythm rate 69 SD interval 220 QRS 108 QTC 447 no priors to compare no ST changes MDM Narrative Medical decision making narrative: Patient is not tPA candidate because she is having improvement of her symptoms. Initially she has some right leg drifting. However after re-evaluation in CT she is able to hold her leg for 10 seconds. She has some baseline a language difficulties. I am able to understand her she is slow to respond. -patient is noted to be in extremely hard IV stick. Multiple attempts in the CT scanner for CT angio. Decision to bring patient back after non contrasted head CT to place central line for CT angio. 17:31 Dr. lay, Radiology called to inform me of negative noncontrast head CT however states that there is increase in the left MCA. 17:45-Dr. Bridges neurology has been updated patient's symptoms test results at this time agrees not tPA candidate due to improvement. However it does sound that the last known well could be at 4:01 a.m. when she texted. Difficult to say if she is a thrombectomy because she is having improvement in symptoms. Need to do CT angio Carey SHORT updated on symptoms accepts patient Discharge Plan Departure Prescriptions: No Action tizanidine 2 mg tablet 2 mg PO Q8H MDD 3 PRN (Reason: muscle spasticity) Qty: 60 RF: 0 citalopram 40 mg tablet 20 mg PO DAILY RF: 0 oxycodone-acetaminophen [Endocet] 5-325 mg tablet 1 tab PO Q6H PRN (Reason: pain) Qty: 30 RF: 0 aripiprazole 5 mg tablet 5 mg DAILY RF: 0 citalopram 40 mg tablet 40 mg DAILY RF: 0 Referrals: Flex Kaur, [Primary Care Provider] -
[2021-04-12 18:41] LABS: Prothrombin Time 11.4 SECONDS (10.1-12.7)
[2021-04-12 18:44] LABS: Alanine Aminotransferase 11 IU/L (<35); Albumin 3.5 g/dL (3.5-5.0); Albumin Globulin Ratio 1.4 (1.0-2.8); Alkaline Phosphatase 48 U/L (38-126); Aspartate Aminotransferase 24 IU/L (14-36); BUN Creatinine Ratio 17.7 (6-22); Bilirubin Total 0.2 mg/dL (0.2-1.3); Blood Urea Nitrogen 14 mg/dL (7-17); Calcium 9.2 mg/dL (8.4-10.2); Carbon Dioxide 29 mmol/L (22-32); Chloride 107 mmol/L (98-107); Creatine Kinase 32 U/L (30-135); Estimated Glomerular Filt Rate > 60.0 mL/min (>60); Globulin 2.5 g/dL (1.7-4.1); Glucose 116 mg/dL (80-110); HEMOLYSIS < 15 (0-50); PTT Partial Thromboplastin Tim 30 SECONDS (26.4-36.2); Potassium 3.8 mmol/L (3.4-5.1); Sodium 139 mmol/L (137-145)
[2021-04-12 18:54] LABS: UR Morphine/Opiate cutoff 300 Negative (Negative); Ur Creatinine Normal (Normal); Ur Specific Gravity Normal (Normal); Urine Cocaine Negative (Negative); Urine Tetrahydrocannabinol Positive (Negative); Urine pH Normal (Normal)
[2021-04-12 18:55] LABS: Urine Amphetamines Negative (Negative); Urine Barbiturates Negative (Negative); Urine Benzodiazepines Negative (Negative); Urine MDMA Negative (Negative); Urine Methadone Negative (Negative); Urine Methamphetamines Negative (Negative); Urine Oxycodone Positive (Negative); Urine Phencyclidine Negative (Negative); Urine Tricyclic Antidepressant Negative (Negative)
[2021-04-12] MEDS: SODIUM CHLORIDE 0.9% 1,000 ML 150 ML IV (19:04)
[2021-04-12 19:34] LABS: Platelet Count 178 X10^3/uL (150-400)
--- NOTE | 2021-04-12 19:34 | PC.NURSE ---
Shivani Nathan Daughter [phone] Keyonna roberts (friend) [phone]
[2021-04-12] MEDS: ASPIRIN 81 MG CHEW TAB 324 MG PO (19:38)
[2021-04-12 20:18] LABS: COVID19 - ADMIT (NP swab/PCR) Negative (Negative)
[2021-04-12 20:57] LABS: Magnesium 1.9 mg/dL (1.6-2.3)
[2021-04-12 21:00] LABS: Hemoglobin A1C% w Est Avg Glu 6.6 % (4.0-6.0)
[2021-04-12 21:31] LABS: Thyroid Stimulating Hormone 1.75 uIU/mL (0.47-4.68)
--- NOTE | 2021-04-12 22:47 | PC.ADMIT ---
[address] [facility] Admission Note: The patient,Pricilla Teague,75 y/o, was given written information regarding hospital policies, unit procedures and contact persons. Patient's smoking status: Never smoker. Vital Signs - 8 hr 04/12/21 17:15 04/12/21 17:38 04/12/21 17:39 Temperature 98.5 F Pulse Rate 74 73 74 Respiratory Rate 18 Blood Pressure 136/60 147/70 H Pulse Oximetry 96 96 96 04/12/21 18:00 04/12/21 18:09 04/12/21 18:38 Temperature Pulse Rate 75 71 77 Respiratory Rate 17 20 18 Blood Pressure 150/66 H Pulse Oximetry 96 97 95 04/12/21 18:40 04/12/21 19:00 04/12/21 19:01 Temperature Pulse Rate 76 71 71 Respiratory Rate 19 19 20 Blood Pressure 166/76 H 171/74 H Pulse Oximetry 98 98 97 04/12/21 19:30 04/12/21 19:31 04/12/21 20:35 Temperature 96.5 F L Pulse Rate 71 74 Respiratory Rate 20 18 Blood Pressure 150/65 H 146/91 H Pulse Oximetry 99 Patient admitted to room 215. Arrived on floor at 2034. Transported via bed by ICU WOMEN'S STUDIES LECTURER. Accompanied by friend. Oriented to room and floor, call light given, bed in lowest position, bed alarm on. Patient verbalized understanding and denied any further needs. Telemetry and continuous pulse ox on patient.
--- NOTE | 2021-04-13 | DI.MRI.S_ITS ---
PROCEDURE: MR HEAD/BRAIN WO CON INDICATIONS: suspected CVA, ? large vessel occlusion TECHNIQUE: A standard is protocol was ordered. However, the patient could not tolerate the full examination. The following imaging sequences were obtained: Size Changer images of the venous system, sagittal FLAIR images, axial diffusion-weighted images, and with ADC maps COMPARISON: [facility], CT, CT ANGIO HEAD AND NECK, 04/12/2021, 18:14. FINDINGS: This study is limited by incomplete protocol. On these images, there can be seen several areas of abnormal diffusion-weighted signal within the posterior aspect of the left cerebral hemisphere. These foci demonstrate abnormal dark signal on the ADC maps and developing T2 weighted signal. Note is made of age-appropriate brain parenchymal volume loss and chronic small vessel ischemic changes. There is no hydrocephalus. No extra-axial fluid collections are detected. The basal cisterns are patent. The cerebellar tonsils are not low lying. No significant brainstem abnormality is seen. On the fiscal clerk images, no significant, teresa venous abnormality is seen. IMPRESSION: Limited study demonstrating patchy subacute infarctions involving the posterior aspect the left cerebral hemisphere. Dictated by: Lang Walls M.D. on 04/13/2021 at 8:44 Approved by: Lang Walls M.D. on 04/13/2021 at 8:47
--- NOTE | 2021-04-13 | DI.ECHO.S_ITS ---
[facility] +---------+ : : [address] : [place] : : : : [phone] : : : : Phone: [phone] Echocardiogram Report + + :Name: VEE HOWARD Study Date: 04/13/2021 Height: 69 in : :[facility] ReadingLocation: Weight: 216 lb : : Gender: Female BSA: 2.1 m2 : :: 1945 Age: 75 yrs BP: 151/78 mmHg: :Reason For Study: CVA : :Ordering Physician: BRITTNEY, : :ALEXIA Performed By: Josue Hollis : :Referring: ALEXIA LUGO : + + Interpretation Summary The patient was in sinus rhythm with heart rates between 70-82 bpm during the exam. The left ventricle is normal in size and wall thickness. The ejection fraction is estimated to be 65-70%. There is no obvious LV thrombus. The right ventricle is normal in size and function. No significant valvular pathology seen. Injection of contrast documented no interatrial shunt. There is no Doppler evidence for an interatrial shunt. Mild atherosclerotic plaque(s) in the aortic arch. Procedure: A two-dimensional transthoracic echocardiogram with color flow and Doppler was performed. The study quality was technically adequate. There is no prior echocardiogram noted for this patient. A saline contrast injection was performed to assess for cardiac shunting. The patient was in sinus rhythm with heart rates between 70-82 bpm during the exam. Left Ventricle: The left ventricle is normal in size and wall thickness. There is no thrombus. The ejection fraction is estimated to be 65-70%. There are no focal wall motion abnormalities. Diastolic parameters suggest a relaxation abnormality of the left ventricle, consistent with probable normal filling pressures. Right Ventricle: The right ventricle is normal in size and function. Atria: Both atria are normal in size. There is no Doppler evidence for an interatrial shunt. Injection of contrast documented no interatrial shunt. Mitral Valve: There is mild mitral annular calcification. There is mild mitral regurgitation. Aortic Valve: The aortic valve is trileaflet. The aortic valve is mildly calcified. There is no aortic valve stenosis. No aortic regurgitation is present. Tricuspid Valve: The tricuspid valve is normal. Pulmonary artery pressures cannot be estimated because of the lack of a measurable TR jet velocity. There is trace tricuspid regurgitation. Pulmonic Valve: The pulmonic valve is not well seen, but is grossly normal. There is trace pulmonic regurgitation. Great Vessels: The aortic root is normal size. There is aortic root sclerosis/calcification. The dimensions of the ascending aorta are normal. Mild atherosclerotic plaque(s) in the aortic arch. The inferior vena cava was not well visualized. Pericardium/ Pleura There is no pericardial effusion. There is an anterior echo-free space consistent with a fat pad. There is no pleural effusion. MMode/2D Measurements & Calculations LVIDd: 4.5 cm LVOT diam: 2.2 cm LVIDs: 2.9 cm Ao root diam: 3.1 cm FS: 36.2 % asc Aorta Diam: 3.1 cm IVSd: 0.86 cm LVPWd: 0.79 cm LV martinez. diameter/BSA (cm/m^2): 2.1 LV sys. diameter/BSA (cm/m^2): 1.3 LA A2 area: 16.9 cm2 RA long axis: 5.1 cm LA A4 area: 16.9 cm2 RA area: 14.3 cm2 LA length (vol): 4.8 cm RA vol: 34.3 ml LA vol: 50.8 ml RA : 16.1 ml/m2 LA vol index: 23.8 ml/m2 TAPSE: 1.7 cm Doppler Measurements & Calculations Ao V2 max: 165.1 cm/sec LVOT Max Hesham: 127.3 cm/sec Ao V2 mean: 108.8 cm/sec LV V1 max P.5 mmHg Ao max P.9 mmHg LV V1 VTI: 28.2 cm Ao mean P.5 mmHg DENISSE(I,D): 3.0 cm2 Ao V2 VTI: 33.7 cm DENISSE(V,D): 2.8 cm2 sev ratio: 0.84 DENISSE indexed to BSA (cm^2/m^2): 1.4 MV E max hesham: 88.7 cm/sec PA pr(Accel): 43.9 mmHg MV A max hesham: 117.7 cm/sec MV E/A: 0.75 Med Peak E' Hesham: 7.3 cm/sec E/E' med: 12.2 Lat Peak E' Hesham: 11.1 cm/sec E/E' lat: 8.0 E/e' average: 10.1 MV dec time: 0.36 sec SV(LVOT): 102.7 ml Reading Physician:02:02 PM
--- NOTE | 2021-04-13 00:19 | P.HP_ITS ---
History of Present Illness History of Present Illness Date Patient Seen: 04/13/21 Time Patient Seen: 21:30 Chief complaint: Stroke - symptoms now resloved Narrative: Pricilla Teague is a 75 y.o. female currently undergoing palliative treatment for stage 4 breast cancer present to the ED for what was thought to be another CVA. She is a difficult historian as she has a slowed speech pattern. Per the patient and her friend, Keyonna Ortizuser provided the history. She got out of an afternoon shower, and when she was in her home office, stated her head started to feel heavy. She fed her cats, then fell on the floor and was unable to get up. She was able to call her daughter, Suzanne who then started a phone tree regarding her mother's condition. Patient did not want to be taken to the ED, and specified she would like to come to [facility]. Head CT impression: 1. No acute intracranial hemorrhage. 2. Focal increased density in the region of the left MCA. This could potentially represent an intra-arterial thrombus. Follow up CTA impression: 1. No large vessel occlusion. 2. Greater than 50% stenosis in the left ICA. Approximately 50% stenosis in the right ICA. Consider carotid ultrasound for further classification. Dense calcified plaque. 3. 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 Variant origin of the left common carotid artery. Consideration was made whether to administer tPA for this patient however her symptoms improved from an initial NIH score of 3 and has been ranging from 0-1 since she has arrived to the floor. Patient is afebrile, blood pressure 146/91, heart rate 74, respiratory rate 18, oxygen saturation 99% on room air, she weighs 98.4 kg with a BMI of 32.5. CBC is unremarkable, she has a mildly elevated glucose of 116 an a hemoglobin A1c of 6.6 indicating prediabetes, toxicology was positive for oxycodone and marijuana, COVID-19 was negative. Patient History Medical History Depression Essential hypertension Fatigue History of CVA (cerebrovascular accident) HTN (hypertension) Hx of fracture of ankle Seasonal allergies Surgical History Hx of bilateral mastectomy Family & Social History Family History Father Hypertension Family/Other Cancer Mother Stroke Grandmother Diabetes mellitus Social History: household members none Safety & Behavioral: Feels Safe in Current Yes Environment Been Physically Hurt or No Threatened By a Person Suicidal Ideation Description None Tobacco & Substance use: Smoking Status Never smoker alcohol intake current Substance Use Type vaping marijuana Meds Home Medications and Allergies Home Medications Medication Instructions Recorded Confirmed Type citalopram 40 mg tablet 20 mg PO DAILY 02/28/18 04/12/21 History oxycodone-acetaminophen 5 mg-325 1 tab PO Q6H PRN #30 tab 02/28/18 04/12/21 Rx mg tablet (Endocet) tizanidine 2 mg tablet 2 mg PO Q8H PRN #60 tab MDD 3 03/07/18 04/12/21 Rx aripiprazole 5 mg tablet 5 mg DAILY 04/12/21 04/12/21 History citalopram 40 mg tablet 40 mg DAILY 04/12/21 04/12/21 History Allergies Allergy/AdvReac Type Severity Reaction Status Date / Time acetaminophen [From Percocet] AdvReac Verified 03/07/18 14:34 aspirin [From Percodan] AdvReac Verified 03/07/18 14:34 oxycodone [From Percocet] AdvReac Verified 03/07/18 14:34 Review of Systems Review of Systems ROS: Yes All systems reviewed with the patient and are negative except as otherwise documented Exam Vital Signs (past 8 hours): - 04/12/21 17:15 04/12/21 17:38 04/12/21 17:39 Temperature 98.5 F Pulse Rate 74 73 74 Respiratory Rate 18 Blood Pressure 136/60 147/70 H Pulse Oximetry 96 96 96 04/12/21 18:00 04/12/21 18:09 04/12/21 18:38 Temperature Pulse Rate 75 71 77 Respiratory Rate 17 20 18 Blood Pressure 150/66 H Pulse Oximetry 96 97 95 04/12/21 18:40 04/12/21 19:00 04/12/21 19:01 Temperature Pulse Rate 76 71 71 Respiratory Rate 19 19 20 Blood Pressure 166/76 H 171/74 H Pulse Oximetry 98 98 97 04/12/21 19:30 04/12/21 19:31 04/12/21 20:35 Temperature 96.5 F L Pulse Rate 71 74 Respiratory Rate 20 18 Blood Pressure 150/65 H 146/91 H Pulse Oximetry 99 Oxygen Delivery Method Room Air Narrative Exam Narrative: Gen: Alert, oriented, obese 75 y.o. female, appears fatigued HEENT: normocephalic, atraumatic, conjunctiva clear, sclera non-icteric, oral mucosa pink and moist Neck: supple, full ROM, no JVD, trachea is midline Resp: Lungs CTA, non-labored breathing CV: RRR, no murmur or rubs Abd: soft, non-tender, normoactive BTs Skin: no lesions or rashes, dry and intact Neuro: Alert and oriented X 4 w/no focal deficits. Speech is delayed but clear and coherent. NIH score at admission was 1. Extremities: moves all 4 extremities, is ambulatory, negative Talya?s sign Psyche: normal mood and affect. Objective Labs Result Diagrams: 04/12/21 17:53 04/12/21 18:08 Labs: Laboratory Results - last 24 hr 04/12/21 04/12/21 04/12/21 17:53 18:08 18:08 WBC 4.1 L RBC 3.93 L Hgb 12.8 Hct 38.4 MCV 97.7 MCH 32.6 MCHC 33.4 RDW 13.3 Plt Count 178 Neut % (Auto) 65.0 Lymph % (Auto) 24.8 L [place] % (Auto) 8.6 Eos % (Auto) 1.1 L Baso % (Auto) 0.5 Neut # (Auto) 2700 Lymph # (Auto) 1000 L [place] # (Auto) 400 Eos # (Auto) 0 Baso # (Auto) 0 PT 11.4 INR 1.0 APTT 30 Sodium 139 Potassium 3.8 Chloride 107 Carbon Dioxide 29 BUN 14 Creatinine 0.79 Estimated GFR > 60.0 BUN/Creatinine Ratio 17.7 Glucose 116 H Hemoglobin A1c Calcium 9.2 Magnesium Total Bilirubin 0.2 AST 24 ALT 11 Alkaline Phosphatase 48 Total Creatine Kinase 32 CK-MB (CK-2) TNP CK-MB (CK-2) Rel Index TNP Troponin I < 0.012 Total Protein 6.0 L Albumin 3.5 Globulin 2.5 Albumin/Globulin Ratio 1.4 TSH U Opiates 300ng/mL cut Ur Oxycodone Screen Urine Methadone Screen Ur Barbiturates Screen U Tricyclic Antidepress Ur Phencyclidine Scrn Ur Amphetamines Screen U Methamphetamines Scrn Ur MDMA Scrn (Ecstasy) U Benzodiazepines Scrn Urine Cocaine Screen U Marijuana (THC) Screen SARS-CoV-2 (PCR) 04/12/21 04/12/21 04/12/21 18:08 18:08 18:08 WBC RBC Hgb Hct MCV MCH MCHC RDW Plt Count Neut % (Auto) Lymph % (Auto) [place] % (Auto) Eos % (Auto) Baso % (Auto) Neut # (Auto) Lymph # (Auto) [place] # (Auto) Eos # (Auto) Baso # (Auto) PT INR APTT Sodium Potassium Chloride Carbon Dioxide BUN Creatinine Estimated GFR BUN/Creatinine Ratio Glucose Hemoglobin A1c 6.6 H Calcium Magnesium 1.9 Total Bilirubin AST ALT Alkaline Phosphatase Total Creatine Kinase CK-MB (CK-2) CK-MB (CK-2) Rel Index Troponin I Total Protein Albumin Globulin Albumin/Globulin Ratio TSH 1.75 U Opiates 300ng/mL cut Ur Oxycodone Screen Urine Methadone Screen Ur Barbiturates Screen U Tricyclic Antidepress Ur Phencyclidine Scrn Ur Amphetamines Screen U Methamphetamines Scrn Ur MDMA Scrn (Ecstasy) U Benzodiazepines Scrn Urine Cocaine Screen U Marijuana (THC) Screen SARS-CoV-2 (PCR) 04/12/21 04/12/21 18:34 19:09 WBC RBC Hgb Hct MCV MCH MCHC RDW Plt Count Neut % (Auto) Lymph % (Auto) [place] % (Auto) Eos % (Auto) Baso % (Auto) Neut # (Auto) Lymph # (Auto) [place] # (Auto) Eos # (Auto) Baso # (Auto) PT INR APTT Sodium Potassium Chloride Carbon Dioxide BUN Creatinine Estimated GFR BUN/Creatinine Ratio Glucose Hemoglobin A1c Calcium Magnesium Total Bilirubin AST ALT Alkaline Phosphatase Total Creatine Kinase CK-MB (CK-2) CK-MB (CK-2) Rel Index Troponin I Total Protein Albumin Globulin Albumin/Globulin Ratio TSH U Opiates 300ng/mL cut Negative Ur Oxycodone Screen Positive H Urine Methadone Screen Negative Ur Barbiturates Screen Negative U Tricyclic Antidepress Negative Ur Phencyclidine Scrn Negative Ur Amphetamines Screen Negative U Methamphetamines Scrn Negative Ur MDMA Scrn (Ecstasy) Negative U Benzodiazepines Scrn Negative Urine Cocaine Screen Negative U Marijuana (THC) Screen Positive H SARS-CoV-2 (PCR) Negative Assessment & Plan Assessment & Plan narrative: Pricilla Teague is admitted to the inpatient service for further evaluation of a suspected CVA. Suspected CVA, acute and present on admission * Estimated time of onset of her fall was at 1600, patient was in the window for tPa, however the telestroke service did not recommend due to patients improvement of symptoms. * Cardiac telemetry * NIH score greater than 5 [X] no * NIH scoring and neuro checks q 4 hours * Dual antiplatelet therapy: Yes, initiate dual antiplatelet therapy with clopidogrel 75 mg p.o. daily and aspirin 81 mg p.o. daily. She was administered full dose of aspirin in the Ed * MR stroke scheduled for 04/13 * Complete Echo with bubble study for 04/13 * PT/OT/ST evaluation Hypertension, acute with an admission bp of 147/60, present on admission * Allow for permissive hypertension of 220/110 HR 60 to allow for brain perfusion * Allow for permissive hypertension for brain profusion of a systolic of 220 and a diastolic of 105. HLD * Fasting lipid panel, pending for 0500 labs * Atorvastatin 40 mg po at bedtime Risk stratification * Fasting lipid panel pending for the morning * A1c is 6.6%, prediabetes VTE Prophylaxis: Wells risk score 0 Enoxaparin 40 mg subQ once daily Patient is admitted to the inpatient service due to the severity of disease, risks of further disease progression and this stay is expected to exceed 2 midnights. FEN: IV fluids: saline lock, diet: heart healthy, labs: CBC, BMP, Mag, PT/INR Code status: Full code as discussed with the patient who identifies Suzanne Evans, her daughter who is also their surrogate and POA. Number is [phone] I have utilized all available resources (patient, family member, internal and external medical records) at the time of admission to identify the patient?s current home medications that should be continued or held. COVID-19 COVID-19 status: Negative Result date/Date tested (Pos, Neg/Pending): 04/12/21 Scores NIHSS Level of Conciousness: Alert, keenly responsive Ask month/age: Answers both questions correctly. Open/close eyes, close hand: Performs both tasks correctly Best gaze horizontal: Normal Visual bobby: No visual loss Facial palsy: Normal symetrical movement Left arm drift: No drift for full 10 sec Right arm drift: No drift for full 10 sec Left leg drift: No drift for full 5 sec Right leg drift: No drift for full 5 sec Limb ataxia: Absent Sensory on face/arms/legs: Normal, no sensory loss Best language: No aphasia, normal Dysarthria: Mild to mod,some slurring Extinction or inattention: No abnormality Total NIH Stroke scale score: 1 Wells' Criteria for PE Clinical signs and symptoms of DVT: No PE is #1 Dx or equally likely: No Heart rate > 100: No Immobilization at least 3 days or surg in previous 4 weeks: No History of PE or DVT: No Hemoptysis: No Malignancy w/Treatment within 6 months or palliative: No Wells' PE Score total: 0 Quality Stroke Contraindication Not Initiating IV-Tpa: Contraindicated Onset of Symptoms Date: 04/12/21 Onset of Symptoms Time: 16:00 Symptom Onset Unknown: Yes (Exact) Contraindication Antithromb by Day Two: Not indicated Reason for No Antithrombin at DC: Not indicated Rehab Services Assessed: Rehabilitation therapy VTE Deep Vein Thrombosis/Pulmonary Embolism Present on Admission: No MIPS - Admit I confirm the patient?s Advance Care Plan is present, Code status is documented, Surrogate decision maker is in patient?s record [If Yes, STOP here]: Yes
[2021-04-13 00:30] VITALS: BP 137/59; PULSE 69; RESP 14; TEMP 36.2; O2SAT 98
[2021-04-13] MEDS: SODIUM CHLORIDE 0.9% 1,000 ML 150 ML IV ×2 (01:53→10:00)
[2021-04-13 04:31] VITALS: BP 138/72; PULSE 71; RESP 18; TEMP 36.1; O2SAT 97
[2021-04-13 06:48] LABS: Add Manual Diff / Slide Review NO; Basophils Absolute Auto 0 /uL (0-100); Basophils Percent Auto 0.3 % (0-2); Eosinophils Absolute Auto 0 /uL (0-450); Eosinophils Percent Auto 1.1 % (2-4); Hematocrit 30.6 % (36-46); Hemoglobin 10.3 g/dL (12.0-16.0); Lymphocytes Absolute Auto 600 /uL (1100-4500); Lymphocytes Percent Auto 21.2 % (25-40); Mean Corpuscular HGB Conc 33.7 % (30-36); Mean Corpuscular Hemoglobin 32.8 PG (26-34); Mean Corpuscular Volume 97.3 fL (80-100); Monocytes Absolute Auto 300 /uL (0-900); Monocytes Percent Auto 11.5 % (3-14); Neutrophils Absolute Auto 2000 /uL (1500-7000); Neutrophils Percent Auto 65.9 % (50-75); Platelet Count 155 X10^3/uL (150-400); Red Blood Cell Count 3.15 X10^6/uL (4.0-5.2); Red Cell Distribution Width 12.6 % (11.6-14.8)
[2021-04-13 06:55] LABS: BUN Creatinine Ratio 17.2 (6-22); Blood Urea Nitrogen 11 mg/dL (7-17); Calcium 8.3 mg/dL (8.4-10.2); Carbon Dioxide 29 mmol/L (22-32); Chloride 109 mmol/L (98-107); Cholesterol 127 mg/dL (140-199); Estimated Glomerular Filt Rate > 60.0 mL/min (>60); Glucose 95 mg/dL (80-110); HDL Cholesterol 49 mg/dL (40-60); HEMOLYSIS < 15 (0-50); LDL Cholesterol Calculated 45 mg/dL (<100); Magnesium 1.7 mg/dL (1.6-2.3); Potassium 3.6 mmol/L (3.4-5.1); Sodium 139 mmol/L (137-145); Triglycerides 166 mg/dL (35-150)
[2021-04-13 07:13] VITALS: BP 132/56; PULSE 68; RESP 16; TEMP 36.4; O2SAT 97
--- NOTE | 2021-04-13 07:48 | PC.NURSE ---
When nurse did assessment, was not able to finish NIH assessment, pt said she was too tired, so NIH is not accurate.
[2021-04-13] MEDS: CLOPIDOGREL 75 MG TABLET PO (09:52)
[2021-04-13] MEDS: ENOXAPARIN 40 MG/0.4 ML SYRINGE SUBCUT (09:52)
[2021-04-13] MEDS: ASPIRIN EC 81 MG TABLET PO (09:52)
[2021-04-13] MEDS: OXYCODONE IR 10 MG TABLET 30 MG PO (10:56)
[2021-04-13 11:08] VITALS: BP 151/78; PULSE 75; RESP 16; TEMP 36.8; O2SAT 98
--- NOTE | 2021-04-13 11:34 | OT.IP.EVAL ---
Past Medical History (Last Reviewed 04/13/21 @ 00:56 by HAN Uribe) Depression Essential hypertension Fatigue History of CVA (cerebrovascular accident) HTN (hypertension) Hx of bilateral mastectomy Hx of fracture of ankle Seasonal allergies Surgical History (Last Reviewed 04/13/21 @ 00:56 by HAN Uribe) Hx of bilateral mastectomy Occupational Therapy Inpatient Evaluation/Re-Eval M1 PT/OT-IP Prior Functional Status Start: 04/13/21 12:30 Freq: NEEDED Status: Active Protocol: Document 04/13/21 12:30 CGR (Rec: 04/13/21 12:42 CGR [id number]) Medical Review Prior Functional Status Medical History Reviewed Yes Communication Pt is slow to respond but is an effective verbal communicator with extra time. Mobility and Gait Pt was IND at baseline. Activities of Daily Living and IADL's Pt was IND at baseline Social History Household Members none Living Arrangements House Number of Floors (Floors) One Floor Number of Stairs To Enter/Railing? 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 Daughter lives in [facility] and per pt, does not check in on pt. M2 OT-IP Current Condition Start: 04/13/21 12:30 Freq: Status: Active Protocol: Document 04/13/21 12:30 CGR (Rec: 04/13/21 12:42 CGR [id number]) Occupational Therapy Current Condition Current Condition Evaluation Date 04/13/21 Treatment Diagnosis TIA, currently undergoing palliative treatment for stage 4 breast CA Diagnosis Onset Date 04/12/21 M3 OT- IP Subjective and Pain Start: 04/13/21 12:30 Freq: Status: Active Protocol: Document 04/13/21 12:30 CGR (Rec: 04/13/21 12:42 CGR [id number]) OT- Subjective Occupational Therapy Visit Type Type Initial Evaluation Visit Start Time 11:18 Visit Stop Time 11:34 Total Visit Minutes 16 OT Pain Assessment Pain When Pain Assessed At Rest Pain Present Pain Present Pain Reported Location Back Intensity 8 Scale Used Numeric (0 - 10) Management Techniques Distraction,Modification of Treatment,Re-positioning, Timing of Activity with Medications M4 OT- IP ADL's Start: 04/13/21 12:30 Freq: Status: Active Protocol: Document 04/13/21 12:30 CGR (Rec: 04/13/21 12:42 CGR [id number]) OT [id number] Comments OT Self-Feeding Comments Not meal time OT ADL-Grooming General Evaluation Grooming Ability Independent Areas Needing Assistance Face Washing Comments OT Grooming Comments standing at sink OT ADL-Oral Care General Eval Oral Care Ability Independent Comments Oral Care Comments standing at sink OT ADL-Dressing General Eval Lower Body Dressing Ability Independent Areas Needing Assistance Socks Comments OT Dressing Comments seated in chair OT ADL-Toileting Comments OT Toileting Comments not performed, pt states she just performed OT ADL-Bathing Comments OT Bathing Comments not performed M5 OT- IP IADL's Start: 04/13/21 12:30 Freq: Status: Active Protocol: Document 04/13/21 12:30 CGR (Rec: 04/13/21 12:42 CGR [id number]) OT-Instrumental Activities of Daily Living Deficits IADL Deficits Identified No Deficits Home Safety Awareness Awareness of Need for Assistance at Home Good Awareness Ability to Problem Solve Emergency Able to Problem Solve Situations Medication Management Medication Management No Deficits Identified Money Management Money Management No Deficits Identified Meal Preparation Meal Preparation No Deficits Identified Hand Stone Polisher Hand Stone Polisher Comments Pt has a house keeper that comes in every 3 weeks. 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 OT- IP Functional Cognition Start: 04/13/21 12:30 Freq: Status: Active Protocol: Document 04/13/21 12:30 CGR (Rec: 04/13/21 12:42 CGR [id number]) Cognitive Factors Limiting Selfcare Function Cognitive Ability Level of Alertness Alert Patient Orientation Name,Age,Birthday,Month,Date, Year,Day of Week,Place, Situation Attention Span Ability Capable of Focused Attention, Capable of Sustained Attention Ability to Follow Commands Able to Follow One Step Commands with Increased Time, Able to Follow One Step Commands with Repetition Cognitive Comments Cognitive Assessment Comments Pt needs extra time to process verbal directions but is able to follow and appears to be at her baseline. OT- Vision and Hearing OT- Hearing Assessment OT- Hearing Assessment WFL,Left Ear Impaired OT- Vision Assessment Visual Acuity Glasses For Reading Visual Attentiveness WFL Occular Pursuits WFL Visual Convergence WFL M7 OT- IP Mobility and Balance Start: 04/13/21 12:30 Freq: Status: Active Protocol: Document 04/13/21 12:30 CGR (Rec: 04/13/21 12:42 CGR [id number]) OT- Bed Mobility Assessment Rolling Type of Rolling Roll to Right Level of Assistance Independent Supine to Sit Supine to Sit Assist Independent Scooting Scooting to Edge of Bed Independent OT-Transfer Assessment Sit to and From Stand Sit to and from Stand Independent Transfers Transfer Ability Independent Technique Transfer Destination Bed,Chair Transfer Technique Stand Step Pivot Devices Transfer Assistive Devices Gait Belt Comments Mobility Comments mobility around the room without assist OT- Balance Assessment Sitting Balance and Reactions Static Sitting Balance Ability Normal Dynamic Sitting Balance Ability Normal M8 OT- IP Objective Assessments Start: 04/13/21 12:30 Freq: Status: Active Protocol: Document 04/13/21 12:30 CGR (Rec: 04/13/21 12:42 CGR [id number]) OT Gross Range of Motion Upper Extremity Range of Motion Assessment Within Functional Limits OT Strength Upper Extremity Strength Assessment Within Functional Limits Comments Strength Comments shlds 4/5, arms and hands 5-/5 OT- Coordination Assessment Upper Extremity Finger to Nose Test Within Functional Limits Finger Tapping Test Within Functional Limits OT-Muscle Tone Assessment Muscle Tone WNL Yes OT Sensation Assessment Edema Edema Absent M9 OT- IP Assessment and Plan Start: 04/13/21 12:30 Freq: Status: Active Protocol: Document 04/13/21 12:30 CGR (Rec: 04/13/21 12:42 CGR [id number]) OT Summary Assessment and Plan Potential Rehabilitation Potential Excellent Analytic Complexity at Evaluation Low Summary OT Impairments Pain Progress Towards Goals Safe For Discharge,Goals Met Assessment Summary Pt presents as a low complexity evaluaiton s/p admit for possible TIA. Pt presents at her baseline with possible increased verbal deficits. No further OT needs at this time. Frequency of Treatment Frequency Of Treatment Discharge Discharge Recommendations OT Discharge Recommendations Home Transportation Needs at Discharge Private Vehicle
--- NOTE | 2021-04-13 12:44 | PT.IIE ---
Medical History (Last Reviewed 04/13/21 @ 00:56 by HAN Uribe) Depression Essential hypertension Fatigue History of CVA (cerebrovascular accident) HTN (hypertension) Hx of fracture of ankle Seasonal allergies Physical Therapy Inpatient Evaluation/Re-Eval M1 PT/OT-IP Prior Functional Status Start: 04/13/21 12:30 Freq: NEEDED Status: Active Protocol: Document 04/13/21 12:44 AW (Rec: 04/13/21 13:01 AW [id number]) Medical Review Prior Functional Status Medical History Reviewed Yes Communication Pt is slow to respond but is an effective verbal communicator with extra time. Mobility and Gait Pt was IND at baseline. Activities of Daily Living and IADL's Pt was IND at baseline Social History Household Members none Living Arrangements House Number of Floors (Floors) One Floor Number of Stairs To Enter/Railing? 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 Daughter lives in [facility] and per pt, does not check in on pt. M2 PT-IP Current Condition Start: 04/13/21 10:13 Freq: NEEDED Status: Active Protocol: Document 04/13/21 12:44 AW (Rec: 04/13/21 13:01 AW [id number]) Physical Therapy Current Condition Current Condition Evaluation Date 04/13/21 Treatment Diagnosis subacute L CVA; BRCA stage IV; difficulty in walking Onset Date 04/12/21 M3 PT-IP Subjective Start: 04/13/21 10:13 Freq: NEEDED Status: Active Protocol: Document 04/13/21 12:44 AW (Rec: 04/13/21 13:01 AW [id number]) Subjective Physical Therapy Visit Type Type Initial Evaluation Visit Start Time 12:30 Visit Stop Time 12:44 Total Visit Minutes 14 Notes PLOF and home set up gathered by OT and confirmed by this policy writer typist. Number of RN DIABETES EDUCATOR Visits 0 Physical Therapy Visit Comments Patient Comments Pt is tired but willing to participate with PT Patient Goals Return tony Therapy Pain Assessment Pain When Pain Assessed During Mobility Pain Present Pain Present Denied Pain M4 PT-IP Mobility and Gait Start: 04/13/21 10:13 Freq: NEEDED Status: Active Protocol: Document 04/13/21 12:44 AW (Rec: 04/13/21 13:01 AW [id number]) PT-Bed Mobility Assessment Supine to Sit Supine to Sit Independent PT-Transfer Assessment Sit to and From Stand Sit to and from Stand Standby Assistance,Use of Upper Extremities Equipment Transfer Assistive Device None Orthotic/Prosthetic Devices or Brace: No Transfers Transfer Destination Bed Transfer Technique Stand Step Pivot Transfer Ability Level of Assist Standby Assistance Comments Mobility Comments Pt completed all bed mobility IND. She stood SBA with mild initial unsteadiness. She ambulated in the halls without AD. Dynamic balance was impaired but consistent with baseline per pt report. On return to the room, pt transferred back to supine IND . Gait Assessment Gait Gait Assistance Required: Standby Assistance Distance (Feet) 150 Assistive Devices Assistive Device Gait Belt Gait Deviations General Gait Pattern Decreased Stride Length, Decreased Feet Clearance, Lateral Trunk Lean Factors Limiting Gait Function Factors Limiting Gait Function Decreased Activity Tolerance, Decreased Strength,Poor Balance Comments Gait Comments Pt completed 4-item DGI with score of 9/12. Single points were deducted for reduced gait speed with head turns in both directions and for minimal changes in gait speed when prompted. No LOB was observed. Stair Climbing Assessment Comments Stair Climbing Comments Not assessed. PT-Balance Assessment Sitting Balance and Reactions Static Sitting Balance Ability Good Dynamic Sitting Balance Ability Good Standing Balance and Reactions Static Standing Balance Ability Good Dynamic Standing Balance Ability Fair Device Used no AD Functional Assessments Functional Tests Dynamic Gait Index 4-item DGI: 9/12 M5 PT-IP Objective Assessments Start: 04/13/21 10:13 Freq: NEEDED Status: Active Protocol: Document 04/13/21 12:44 AW (Rec: 04/13/21 13:01 AW [id number]) Orientation Orientation/Cognition Level of Alertness Alert Orientation Name,Month,Place,Situation Language Function Ability Expressive Aphasia Safety Awareness Understands Safety Issues Comments Aphasic from prior CVA. Gross Range of Motion Lower Extremity ROM Assessment Within Functional Limits Strength Lower Extremity Strength Assessment Bilaterally Impaired Hip 4-/5 Knee 4/5 Ankle 4+/5 Comments Strength Comments No unilateral deficit on exam. Coordination Assessment Gross Coordination Gross Coordination WNL Assessment Foot Tapping Test Normal Performance Heel on Stephens Test Normal Performance Sensation Assessment Sensation Gross Sensation WNL Comments Sensation Comments Pt denies sensation disturbance. Muscle Tone Muscle Tone WNL Yes M6 PT-IP Treatment Start: 04/13/21 10:13 Freq: NEEDED Status: Active Protocol: Document 04/13/21 12:44 AW (Rec: 04/13/21 13:01 AW [id number]) Physical Therapy Treatment Education Education Provided Safety Other Treatments Other Treatment Performed Educated pt on dynamic balance findings and improving safety in gait. M7 PT-IP Assessment and Plan Start: 04/13/21 10:13 Freq: NEEDED Status: Active Protocol: Document 04/13/21 12:44 AW (Rec: 04/13/21 13:01 AW [id number]) PT Summary Assessment and Plan Potential Status of Condition at Evaluation Stable Summary Impairments Strength,Balance,Gait Assessment Summary Pricilla is a 75 yo woman with stage 4 breast cancer seen for PT evaluation with admitting diagnosis of subacute L CVA. Hospitalist physician reported right sided weakness and numbness. On evaluation, no unilateral deficits were appreciated. Dynamic balance was impaired with 4-item DGI score of 9/12 but no LOB was observed and pt stated gait was consistent with her baseline. No acute PT needs were identified. Pt will be safe to discharge home once medically stable. Frequency of Treatment Frequency Of Treatment Discharge Recommendations To Nursing Amount of Assist Needed Standby Assistance Discharge Recommendations PT Discharge Recommendations Home,Home with Assistance Transportation Needs at Discharge Private Vehicle
--- NOTE | 2021-04-13 13:25 | P.DS_ITS ---
History of Present Illness History of Present Illness Date Patient Seen: 04/13/21 Time Patient Seen: 13:26 Chief complaint: Stroke - symptoms now resloved Narrative: Per HAN Uribe: Pricilla Teague is a 75 y.o. female currently undergoing palliative treatment for stage 4 breast cancer present to the ED for what was thought to be another CVA. She is a difficult historian as she has a slowed speech pattern. Per the patient and her friend, Keyonna Flowersr provided the history. She got out of an afternoon shower, and when she was in her home office, stated her head started to feel heavy. She fed her cats, then fell on the floor and was unable to get up. She was able to call her daughter, Suzanne who then started a phone tree re garding her mother's condition. Patient did not want to be taken to the ED, and specified she would like to come to [place]. Head CT impression: 1. No acute intracranial hemorrhage. 2. Focal increased density in the region of the left MCA. This could potentially represent an intra-arterial thrombus. Follow up CTA impression: 1. No large vessel occlusion. 2. Greater than 50% stenosis in the left ICA. Approximately 50% stenosis in the right ICA. Consider carotid ultrasound for further classi fication. Dense calcified plaque. 3. Variant left VOCAL PERFORMER origin. Variant origin of the left common carotid artery. Consideration was made whether to administer tPA for this patient however her symptoms improved from an initial NIH score of 3 and has been ranging from 0-1 since she has arrived to the floor. Patient is afebrile, blood pressure 146/91, heart rate 74, respiratory rate 18, oxygen sat uration 99% on room air, she weighs 98.4 kg with a BMI of 32.5. CBC is unremarkable, she has a mildly elevated glucose of 116 an a hemoglobin A1c of 6.6 indicating prediabetes, toxicology was positive for oxycodone and marijuana, COVID-19 was negative. Discharge Providers Provider Date of admission: 04/12/21 20:03 Discharge Date: 04/13/21 Primary care physician: Flex Kaur DO Consults: 04/12/21 20:26 Consult to Discharge Planning Routine Comment: Consult to Occupational Therapy Evaluate & Treat Comment: Physician Instructions: Evaluate and treat Consult to Physical Therapy Evaluate & Treat Comment: Physician Instructions: Evaluate and Treat Consult to Speech Therapy Evaluate & Treat Comment: Physician Instructions: Evaluate and treat Discharge provider: Wilbert Bucio DO Summary Hospital Course Discharge Diagnosis: 1. Acute CVA 2. Essential hypertension 3. HLD 4. Type 2 diabetes, possible new diagnosis 5. Stage IV breast cancer, chronic Hospital Course: This is a 75-year-old female with past medical history of possible prior stroke versus TIA, hypertension, hyperlipidemia, unknown if diabetes in the past or not, and stage IV breast cancer who presented with right-sided leg weakness to the emergency room. Her symptoms improved over the course of her admission. On my exam the patient complained of right lower extremity numbness and did have some right lower extremity weakness as well. However this had improved by the time she worked with physical therapy and she was cleared for discharge home at that time. She improved much more quickly than expected. MRI did confirm a subacute infarct on the left. She was mildly hypertensive in started on amlodipine. For her stroke the patient will be started on aspirin daily, and Plavix for an additional 21 days for stroke reduction. She was also started on high-intensity statin therapy with atorvastatin 80 mg. For her stage IV breast cancer she is enrolled in [facility], and I recommend follow-up with them to discuss goals of care discussions regarding stroke risk reduction in the near future. Not all outside records are available for review at this time, but the patient was also noted to have an A1c of 6.6 indicative of diabetes. Given her age and active malignancy no medications are recommended at this time but I do recommend lifestyle modifications and follow up with her primary care provider. Exam Vital Signs (past 8 hours): - 04/13/21 07:13 04/13/21 11:08 Temperature 97.6 F 98.3 F Pulse Rate 68 75 Respiratory Rate 16 16 Blood Pressure 132/56 L 151/78 H Pulse Oximetry 97 98 Oxygen Delivery Method Room Air Oxygen Flow Rate 0 Narrative Exam Narrative: Gen: Alert, oriented, obese 75 y.o. female, appears fatigued HEENT: normocephalic, atraumatic, conjunctiva clear, sclera non-icteric, oral mucosa pink and moist Neck: supple, full ROM, no JVD, trachea is midline Resp: Lungs CTA, non-labored breathing CV: RRR, no murmur or rubs Abd: soft, non-tender, normoactive BTs Skin: no lesions or rashes, dry and intact Neuro: Alert and oriented X 4 . Slowed speech. Reported RLE numbness on exam, right leg falls but not to bed. Extremities: moves all 4 extremities, ambulatory in room. Psyche: normal mood and affect. Objective Labs Result Diagrams: 04/13/21 06:30 04/13/21 06:30 Labs: Laboratory Results - last 24 hr 04/12/21 04/12/21 04/12/21 17:53 18:08 18:08 WBC 4.1 L RBC 3.93 L Hgb 12.8 Hct 38.4 MCV 97.7 MCH 32.6 MCHC 33.4 RDW 13.3 Plt Count 178 Neut % (Auto) 65.0 Lymph % (Auto) 24.8 L [place] % (Auto) 8.6 Eos % (Auto) 1.1 L Baso % (Auto) 0.5 Neut # (Auto) 2700 Lymph # (Auto) 1000 L [place] # (Auto) 400 Eos # (Auto) 0 Baso # (Auto) 0 PT 11.4 INR 1.0 APTT 30 Sodium 139 Potassium 3.8 Chloride 107 Carbon Dioxide 29 BUN 14 Creatinine 0.79 Estimated GFR > 60.0 BUN/Creatinine Ratio 17.7 Glucose 116 H Hemoglobin A1c Calcium 9.2 Magnesium Total Bilirubin 0.2 AST 24 ALT 11 Alkaline Phosphatase 48 Total Creatine Kinase 32 CK-MB (CK-2) TNP CK-MB (CK-2) Rel Index TNP Troponin I < 0.012 Total Protein 6.0 L Albumin 3.5 Globulin 2.5 Albumin/Globulin Ratio 1.4 Triglycerides Cholesterol LDL Cholesterol, Calc HDL Cholesterol TSH U Opiates 300ng/mL cut Ur Oxycodone Screen Urine Methadone Screen Ur Barbiturates Screen U Tricyclic Antidepress Ur Phencyclidine Scrn Ur Amphetamines Screen U Methamphetamines Scrn Ur MDMA Scrn (Ecstasy) U Benzodiazepines Scrn Urine Cocaine Screen U Marijuana (THC) Screen SARS-CoV-2 (PCR) 04/12/21 04/12/21 04/12/21 18:08 18:08 18:08 WBC RBC Hgb Hct MCV MCH MCHC RDW Plt Count Neut % (Auto) Lymph % (Auto) [place] % (Auto) Eos % (Auto) Baso % (Auto) Neut # (Auto) Lymph # (Auto) [place] # (Auto) Eos # (Auto) Baso # (Auto) PT INR APTT Sodium Potassium Chloride Carbon Dioxide BUN Creatinine Estimated GFR BUN/Creatinine Ratio Glucose Hemoglobin A1c 6.6 H Calcium Magnesium 1.9 Total Bilirubin AST ALT Alkaline Phosphatase Total Creatine Kinase CK-MB (CK-2) CK-MB (CK-2) Rel Index Troponin I Total Protein Albumin Globulin Albumin/Globulin Ratio Triglycerides Cholesterol LDL Cholesterol, Calc HDL Cholesterol TSH 1.75 U Opiates 300ng/mL cut Ur Oxycodone Screen Urine Methadone Screen Ur Barbiturates Screen U Tricyclic Antidepress Ur Phencyclidine Scrn Ur Amphetamines Screen U Methamphetamines Scrn Ur MDMA Scrn (Ecstasy) U Benzodiazepines Scrn Urine Cocaine Screen U Marijuana (THC) Screen SARS-CoV-2 (PCR) 04/12/21 04/12/21 04/13/21 18:34 19:09 06:30 WBC 3.0 L RBC 3.15 L Hgb 10.3 L Hct 30.6 L MCV 97.3 MCH 32.8 MCHC 33.7 RDW 12.6 Plt Count 155 Neut % (Auto) 65.9 Lymph % (Auto) 21.2 L [place] % (Auto) 11.5 Eos % (Auto) 1.1 L Baso % (Auto) 0.3 Neut # (Auto) 2000 Lymph # (Auto) 600 L [place] # (Auto) 300 Eos # (Auto) 0 Baso # (Auto) 0 PT INR APTT Sodium Potassium Chloride Carbon Dioxide BUN Creatinine Estimated GFR BUN/Creatinine Ratio Glucose Hemoglobin A1c Calcium Magnesium Total Bilirubin AST ALT Alkaline Phosphatase Total Creatine Kinase CK-MB (CK-2) CK-MB (CK-2) Rel Index Troponin I Total Protein Albumin Globulin Albumin/Globulin Ratio Triglycerides Cholesterol LDL Cholesterol, Calc HDL Cholesterol TSH U Opiates 300ng/mL cut Negative Ur Oxycodone Screen Positive H Urine Methadone Screen Negative Ur Barbiturates Screen Negative U Tricyclic Antidepress Negative Ur Phencyclidine Scrn Negative Ur Amphetamines Screen Negative U Methamphetamines Scrn Negative Ur MDMA Scrn (Ecstasy) Negative U Benzodiazepines Scrn Negative Urine Cocaine Screen Negative U Marijuana (THC) Screen Positive H SARS-CoV-2 (PCR) Negative 04/13/21 04/13/21 06:30 06:30 WBC RBC Hgb Hct MCV MCH MCHC RDW Plt Count Neut % (Auto) Lymph % (Auto) [place] % (Auto) Eos % (Auto) Baso % (Auto) Neut # (Auto) Lymph # (Auto) [place] # (Auto) Eos # (Auto) Baso # (Auto) PT INR APTT Sodium 139 Potassium 3.6 Chloride 109 H Carbon Dioxide 29 BUN 11 Creatinine 0.64 Estimated GFR > 60.0 BUN/Creatinine Ratio 17.2 Glucose 95 Hemoglobin A1c Calcium 8.3 L Magnesium 1.7 Total Bilirubin AST ALT Alkaline Phosphatase Total Creatine Kinase CK-MB (CK-2) CK-MB (CK-2) Rel Index Troponin I Total Protein Albumin Globulin Albumin/Globulin Ratio Triglycerides 166 H Cholesterol 127 L LDL Cholesterol, Calc 45 HDL Cholesterol 49 TSH U Opiates 300ng/mL cut Ur Oxycodone Screen Urine Methadone Screen Ur Barbiturates Screen U Tricyclic Antidepress Ur Phencyclidine Scrn Ur Amphetamines Screen U Methamphetamines Scrn Ur MDMA Scrn (Ecstasy) U Benzodiazepines Scrn Urine Cocaine Screen U Marijuana (THC) Screen SARS-CoV-2 (PCR) PFSH Medical History Depression Essential hypertension Fatigue History of CVA (cerebrovascular accident) HTN (hypertension) Hx of fracture of ankle Seasonal allergies Surgical History Hx of bilateral mastectomy Family History Father Hypertension Family/Other Cancer Mother Stroke Grandmother Diabetes mellitus Social History household members: none Smoking Status: Never smoker alcohol intake: current substance use type: marijuana Discharge Plan Discharge Plan Patient Disposition: Home Provider Discharge Comment: You were admitted to the hospital and found to have had a stroke. You improved over time and were started on medications to reduce your risk of having a stroke. You did well with PT and were safe for discharge home. Please follow up with your PCP in the next 2 weeks to go over your medications. Clopidogrel is taken for 20 additional days at home to reduce your stroke risk in the near term, but is not needed after. Discharge orders & Medications Prescriptions: New aspirin 81 mg Tablet,Delayed Release (Dr/Ec) 81 mg PO DAILY 30 Days Qty: 30 RF: 0 atorvastatin 80 mg tablet 80 mg PO BEDTIME 30 Days Qty: 30 RF: 0 clopidogrel 75 mg Tablet 75 mg PO DAILY 20 Days Qty: 20 RF: 0 amlodipine 5 mg tablet 5 mg PO DAILY 30 Days Qty: 30 RF: 0 Continued tizanidine 2 mg tablet 2 mg PO Q8H MDD 3 PRN (Reason: muscle spasticity) Qty: 60 RF: 0 citalopram 40 mg tablet 20 mg PO DAILY RF: 0 oxycodone-acetaminophen [Endocet] 5-325 mg tablet 1 tab PO Q6H PRN (Reason: pain) Qty: 30 RF: 0 aripiprazole 5 mg tablet 5 mg DAILY RF: 0 citalopram 40 mg tablet 40 mg DAILY RF: 0 dexamethasone 1 mg tablet 1 mg PO Q OTHER DAY RF: 0 oxycodone 10 mg tablet 30 mg PO TID RF: 0 Follow up/Referrals: Flex Kaur DO [Primary Care Provider] - Diet/Activity/Treatments Diet: Diet as Tolerated and Low-sodium Activity: As tolerated Discharge Data Primary Care Provider: Flex Kaur Quality Stroke Contraindication Not Initiating IV-Tpa: Contraindicated Onset of Symptoms Date: 04/12/21 Onset of Symptoms Time: 16:00 Symptom Onset Unknown: Yes (Exact) Contraindication Antithromb by Day Two: Not indicated Rehab Services Assessed: Rehabilitation therapy VTE Deep Vein Thrombosis/Pulmonary Embolism Present on Admission: No
--- NOTE | 2021-04-13 14:21 | PC.NURSE ---
Discharge note: Patient discharge home per MD order, cleared by PT. CHAPARRO central line discontinued per Emma MORGAN. Discharge instructions given to patient and to daughter Shivani via phone call. Discuss importance of F/U with PMD, new medications and importance of adherence, s/sx of stroke, and home safety. Both patient and daughter Shivani verbalized understanding. Ambulating in room, SBA, dressed independently. Home via private vehicle accompanied by friend.
--- NOTE | 2021-04-13 16:46 | CM.DANOTE ---
Discharge Planning/Care Management DCP: assessment: case received this morning, discussed in Team Rounds with Dr. Bucio ordering MRI and ECHO and then ? home. PT was ordered. Met at that time with pt and introduced self and role. Pt gave very limited information, just noting that I am going home today and am not interested in anything else. Verifies PCP: Felx Kaur. PT did clear pt for d/c later in the day, Dr. Bucio gave the d/c to home order and with pt left in the care of her daughter. PCP followup recommended. CM Discharge Assessment Start: 04/13/21 16:45 Freq: Status: Active Protocol: Document 04/13/21 16:45 ITV (Rec: 04/13/21 16:45 ITV [id number]) Discharge Planning Assessment Advance Directives? No History Provided By Patient,Medical Record Prior Living Arrangements House Household Members none Is patient alert and oriented? Yes Review Status In Process
== END 2021-04-13 15:57 | disposition home or self-care (01) | DRG 66 ==
LOC: ED 19:00 → AC 20:05
PROVIDERS: Admitting Provider Nurse Practitioner Family; Emergency Provider Emergency Medicine; PCP Family Medicine; Referring Provider Emergency Medicine; Visit Provider Nurse Practitioner Family
DX: I63.9 Cerebral infarction, unspecified (principal); I69.321 Dysphasia following cerebral infarction; R47.01 Aphasia; I10 Essential (primary) hypertension; C50.919 Malignant neoplasm of unspecified site of unspecified female breast; E78.5 Hyperlipidemia, unspecified; R29.703 NIHSS score 3; E11.9 Type 2 diabetes mellitus without complications; Z20.822 Contact with and (suspected) exposure to COVID-19
CPT/HCPCS: 36415; 36592; 70450; 70496; 70498; 70551; 71045; 80048; 80053; 80061; 80305; 81003; 82550; 82962; 83036; 83735; 84443; 84484; 85025; 85610; 85730; 87635; 93005; 93306; 96360; 97162; 97165; 99285; C9803; G0378; J1650; Q9967